=== PATIENT | female | born 1940 | race Caucasian/White ===

== ENCOUNTER 2017-09-15 13:21 | Inpatient (IN) | payer OTHER, MEDICARE ==
--- NOTE | 2017-09-15 13:41 | PDOC ---
History of Present Illness - General Chief Complaint: Toothache Stated Complaint: SWOLLEN MOUTH Time Seen by Provider: 09/15/17 13:38 History Source: Patient Past History - Past Medical History Allergies/Adverse Reactions: Allergies Allergy/AdvReac Type Severity Reaction Status Date / Time Sulfa (Sulfonamide Allergy Severe Verified 09/15/17 13:35 Antibiotics) [Sulfa(Sulfonamide Antibiotics)] ciprofloxacin Allergy Verified 09/15/17 13:35 Penicillins AdvReac Mild Verified 09/15/17 13:35 SEASONAL Allergy Uncoded 09/15/17 13:35 Home Medications: Ambulatory Orders clonazePAM [Klonopin -] 0.5 mg PO BID PRN #30 tablet 01/20/15 Benzonatate [Tessalon Pearls -] 100 mg PO TID #21 capsule 01/15/17 Anemia: Yes Asthma: No Cancer: No Cardiac Disorders: No CVA: No COPD: No CHF: No DVT: No Dementia: No Diabetes: No GI Disorders: Yes (IBS) Disorders: Yes (UTI (ESBL)) HTN: No Hypercholesterolemia: Yes Liver Disease: Yes (hepatitis A 1970) Seizures: No Thyroid Disease: No - Surgical History Abdominal Surgery: No Appendectomy: No Cardiac Surgery: No Cholecystectomy: No Lung Surgery: No Neurologic Surgery: No Orthopedic Surgery: Yes (cast for broken wrist(rt),brace for patellar fracture) - Immunization History Immunization Up to Date: No - Suicide/Smoking/Psychosocial Hx Smoking Status: No Smoking History: Never smoked Have you smoked in the past 12 months: No Number of Cigarettes Smoked Daily: 0 Information on smoking cessation initiated: No Hx Alcohol Use: No Drug/Substance Use Hx: No Substance Use Type: None Hx Substance Use Treatment: No *Physical Exam - Vital Signs Last Vital Signs Temp Pulse Resp BP Pulse Ox 98.7 F 95 H 16 165/95 100 09/15/17 13:31 09/15/17 13:31 09/15/17 13:31 09/15/17 13:31 09/15/17 13:31 Medical Decision Making - Medical Decision Making 09/15/17 13:40 76 yo F, no sig hx,
--- NOTE | 2017-09-15 15:02 | PDOC ---
History of Present Illness - General Chief Complaint: Toothache Stated Complaint: SWOLLEN MOUTH Time Seen by Provider: 09/15/17 13:38 History Source: Patient Exam Limitations: No Limitations - History of Present Illness Initial Comments: The patient is a 76F with a history of IBD who presents with 1 day of right facial swelling/tenderness after breaking a tooth 1 week ago. She reports that she was doing well after breaking her tooth until last night when she first noticed some small right para-nasal swelling that has since spread to her maxillary area and inferiorly towards her mandible. She endorses subjective fevers and chills. She denies HOOPER, vision changes, dysphagia, odynophagia, N/V, or recent sick contacts. She tried taking a homeopathic remedy that she does not remember the name of that did not work. 09/15/17 14:56 Past History - Past Medical History Allergies/Adverse Reactions: Allergies Allergy/AdvReac Type Severity Reaction Status Date / Time Sulfa (Sulfonamide Allergy Severe Verified 09/15/17 23:20 Antibiotics) [Sulfa(Sulfonamide Antibiotics)] ciprofloxacin Allergy Verified 09/15/17 23:20 Penicillins AdvReac Mild Verified 09/15/17 23:20 SEASONAL Allergy Uncoded 09/15/17 23:20 Home Medications: Ambulatory Orders NK [No Known Home Medication] 09/15/17 Anemia: Yes Asthma: No Cancer: No Cardiac Disorders: No CVA: No COPD: No CHF: No DVT: No Dementia: No Diabetes: No GI Disorders: Yes (IBS) Disorders: Yes (UTI (ESBL)) HTN: No Hypercholesterolemia: Yes Liver Disease: Yes (hepatitis A 1970) Seizures: No Thyroid Disease: No - Surgical History Abdominal Surgery: No Appendectomy: No Cardiac Surgery: No Cholecystectomy: No Lung Surgery: No Neurologic Surgery: No Orthopedic Surgery: Yes (cast for broken wrist(rt),brace for patellar fracture) - Immunization History Immunization Up to Date: No - Suicide/Smoking/Psychosocial Hx Smoking Status: No Smoking History: Never smoked Have you smoked in the past 12 months: No Number of Cigarettes Smoked Daily: 0 Information on smoking cessation initiated: No Hx Alcohol Use: No Drug/Substance Use Hx: No Substance Use Type: None Hx Substance Use Treatment: No Review of Systems - Review of Systems Comments:: GENERAL/CONSTITUTIONAL: +subjective fever and chills. No weakness HEAD, EYES, EARS, NOSE AND THROAT: No change in vision. No ear pain or discharge. No sore throat. CARDIOVASCULAR: No chest pain or shortness of breath RESPIRATORY: No cough, wheezing, or hemoptysis. GASTROINTESTINAL: No nausea, vomiting, diarrhea or constipation. GENITOURINARY: No dysuria, frequency, or change in urination. MUSCULOSKELETAL: No joint or muscle swelling or pain. No neck or back pain. SKIN: No rash or reddness other than her facial redness NEUROLOGIC: No headache, vertigo, loss of consciousness, or change in strength/ sensation. ENDOCRINE: No increased thirst. No abnormal weight change HEMATOLOGIC/LYMPHATIC: No anemia, easy bleeding, or history of blood clots. ALLERGIC/IMMUNOLOGIC: No hives or skin allergy. 09/15/17 15:01 *Physical Exam - Vital Signs Last Vital Signs Temp Pulse Resp BP Pulse Ox 98.7 F 95 H 16 165/95 100 09/15/17 13:31 09/15/17 13:31 09/15/17 13:31 09/15/17 13:31 09/15/17 13:31 - Physical Exam Comments: GENERAL: Awake, alert, and fully oriented, in no acute distress HEAD: Swelling over right maxilla from para-nasal area, over maxillary sinus, inferiorly towards mandible with overlying erythema. No fluctuance palpated EYES: PERRLA, EOMI, sclera anicteric, conjunctiva clear ENT: Auricles normal inspection, hearing grossly normal, nares patent, oropharynx clear without exudates. Upper right molar broken, no drainage or swelling seen around the tooth. No mucosal erythema. Moist mucosa NECK: Normal ROM, supple, no lymphadenopathy, JVD, or masses LUNGS: No distress, speaks full sentences, clear to auscultation bilaterally HEART: Regular rate and rhythm, normal S1 and S2, no murmurs, rubs or gallops, peripheral pulses normal and equal bilaterally. ABDOMEN: Soft, nontender, normoactive bowel sounds. No guarding, no rebound. EXTREMITIES : Normal inspection, Normal range of motion, no edema. No clubbing or cyanosis. NEUROLOGICAL: Cranial nerves II through XII grossly intact. Normal speech, normal gait, no focal sensorimotor deficits SKIN: Warm, Dry, normal turgor, no rashes or lesions noted other than erythema noted over facial swelling 09/15/17 15:02 ED Treatment Course - LABORATORY CBC & Chemistry Diagram: 09/15/17 15:09 09/15/17 15:09 - RADIOLOGY Radiology Studies Ordered: Category Date Time Status FACIAL BONES CT WITH CONTRAST [CT] Stat CT Scan 09/15/17 14:55 Ordered Medical Decision Making - Medical Decision Making The patient is a 76F with a history of IBD who presents for 1day of facial swelling and erythema concerning for facial abscess 1wk s/p breaking a tooth. Ddx: facial abscess, cellulitis, sinusitis ED Course BMP, CBC, CT face w/ contrast to evaluate for infection 09/15/17 15:05 BMP with normal Cr, CT w/ contrast still pending. Continues to have pressure and swelling. Afebrile. At this time plan for admission for IV abx for facial infection 09/15/17 16:[address] w/ contrast. Agreed to CT non-contrast of the face if place lead over neck. Discussed plan with patient and radiology who are both in agreement. Plan for admission for IV abx after scan. 09/15/17 19:05 I have transferred care of the patient to Dr. Mitchell and discussed the clinical presentation, work-up and ED course thus far. 09/15/17 20:00 *DC/Admit/Observation/Transfer Diagnosis at time of Disposition: Facial infection - Referrals - Patient Instructions - Post Discharge Activity
--- NOTE | 2017-09-15 16:22 | PDOC ---
Attending Attestation - Resident Resident Name: Martinez Camara - ED Attending Attestation I have performed the following: I have examined & evaluated the patient, The case was reviewed & discussed with the resident, I agree w/resident's findings & plan, Exceptions are as noted - HPI HPI: 09/15/17 16:21 "The patient is a 76 year old female with significant past medical history of anemia, hepatitis A (1970), IBS, who presents to the emergency department to be evaluated for 1 day of facial swelling and worsening redness to her right cheek after breaking her tooth last week. Denies F/C. Denies any bleeding or drainage from tooth or gums. Allergies: sulfas, ciprofloxacin, Penicillins, seasonal Social history: No alcohol, tobacco, recreational drug use. Surgical history: tonsillectomy PCP: unknown " - Physicial Exam PE: 09/15/17 16:33 "GENERAL: Awake, alert, and fully oriented, in no acute distress. HEAD: No signs of trauma EYES: PERRLA, EOMI, sclera anicteric, conjunctiva clear ENT: + swelling and erythema to R cheek, 5th tooth chipped with dentin exposed, no pulp visible, no abscess palpable NECK: Nontender, no stepoffs, Normal ROM, supple, no lymphadenopathy, JVD, or masses LUNGS: Breath sounds equal, clear to auscultation bilaterally. No wheezes, and no crackles HEART: Regular rate and rhythm, normal S1 and S2, no murmurs, rubs or gallops ABDOMEN: Soft, nontender, normoactive bowel sounds. No guarding, no rebound. No masses EXTREMITIES: Normal range of motion, no edema. No clubbing or cyanosis. No cords, erythema, or tenderness NEUROLOGICAL: Cranial nerves II through XII intact. 5/5 strength and sensation in all extremities, Normal speech, normal gait, normal cerebellar function SKIN: Warm, Dry, normal turgor, no rashes or lesions noted. " - Medical Decision Making 09/15/17 16:54 76 F with R cheek swelling and pain after chipping her 5th tooth 1 week ago. Likely periodontal infection. No abscess visualized. - Labs - CT face w/ IV contrast to r/o abscess - Abx <Ou,Remigio - Last Filed: 09/15/17 16:23> Attestations - Attestations 09/15/17 19:04 Documentation prepared by Sita Roberson, acting as medical billing assistant for Remigio Lopez MD. <Sita Roberson - Last Filed: 09/15/17 19:04>
[2017-09-15 16:38] LABS: ANION GAP 8 (8-16); BLOOD UREA NITROGEN 12 mg/dL (7-18); CALCIUM 9.6 mg/dL (8.5-10.1); CHLORIDE 102 mmol/L (98-107); CO2 32 mmol/L (21-32); CREATININE 0.7 mg/dL (0.55-1.02); GLUCOSE,RANDOM 121 mg/dL (74-106); POTASSIUM 3.8 mmol/L (3.5-5.1); SODIUM 142 mmol/L (136-145)
[2017-09-15 18:12] LABS: HEMATOCRIT 41.8 % (32.4-45.2); MCH 31.5 pg (25.7-33.7); MCHC 33.5 g/dl (32.0-36.0); MEAN CELL VOLUME 94.1 fl (80-96); MEAN PLT VOLUME 12.4 fl (7.5-11.1); PLATELET COUNT 192 K/MM3 (134-434); RBC 4.44 M/mm3 (3.60-5.2); RDW 13.6 % (11.6-15.6); WHITE BLOOD COUNT 8.9 K/mm3 (4.0-10.0)
[2017-09-15] MEDS ORDERED: CLINDAMYCIN IVPB 300 MG in DEXTROSE 5%-WATER - 48 ML IVPB ONE (19:00)
[2017-09-15] MEDS ORDERED: CLINDAMYCIN 600MG PREMIX IVPB 600 MG/50 ML BAG IVPB ONE (21:06)
--- NOTE | 2017-09-15 22:26 | PN ---
Teaching Attending Note ATTENDING PHYSICIAN STATEMENT I saw and evaluated the patient. I reviewed the resident's note and discussed the case with the resident. I agree with the resident's findings and plan as documented. SUBJECTIVE: OBJECTIVE: CBCD WBC 8.9 K/mm3 (4.0-10.0) 09/15/17 15:09 RBC 4.44 M/mm3 (3.60-5.2) 09/15/17 15:09 Hgb 14.0 GM/dL (10.7-15.3) 09/15/17 15:09 Hct 41.8 % (32.4-45.2) 09/15/17 15:09 MCV 94.1 fl (80-96) 09/15/17 15:09 MCHC 33.5 g/dl (32.0-36.0) 09/15/17 15:09 RDW 13.6 % (11.6-15.6) 09/15/17 15:09 Plt Count 192 K/MM3 (134-434) 09/15/17 15:09 MPV 12.4 fl (7.5-11.1) H D 09/15/17 15:09 CMP Sodium 142 mmol/L (136-145) 09/15/17 15:09 Potassium 3.8 mmol/L (3.5-5.1) 09/15/17 15:09 Chloride 102 mmol/L (98-107) 09/15/17 15:09 Carbon Dioxide 32 mmol/L (21-32) 09/15/17 15:09 Anion Gap 8 (8-16) 09/15/17 15:09 BUN 12 mg/dL (7-18) 09/15/17 15:09 Creatinine 0.7 mg/dL (0.55-1.02) 09/15/17 15:09 Creat Clearance w eGFR > 60 (>60) 09/15/17 15:09 Calcium 9.6 mg/dL (8.5-10.1) 09/15/17 15:09 ASSESSMENT AND PLAN:
--- NOTE | 2017-09-15 22:32 | PDOC ---
*Physical Exam - Vital Signs Last Vital Signs Temp Pulse Resp BP Pulse Ox 98.7 F 95 H 16 165/95 100 09/15/17 13:31 09/15/17 13:31 09/15/17 13:31 09/15/17 13:31 09/15/17 13:31 - Physical Exam Comments: 09/16/17 04:10 GENERAL: Awake, alert, and fully oriented, in no acute distress HEAD: No signs of trauma, normocephalic, atraumatic EYES: PERRLA, EOMI, sclera anicteric, conjunctiva clear ENT: + swelling, warmth, and erythema from mandibular angle and border to R sided cheek. R sided 5th tooth avulsed with absent visualization of pulp. Auricles normal inspection, hearing grossly normal, nares patent, oropharynx clear without exudates. Moist mucosa NECK: Normal ROM, supple, no lymphadenopathy, JVD, or masses LUNGS: No distress, speaks full sentences, clear to auscultation bilaterally HEART: Regular rate and rhythm, normal S1 and S2, no murmurs, rubs or gallops, peripheral pulses normal and equal bilaterally. ABDOMEN: Soft, nontender, normoactive bowel sounds. No guarding, no rebound. No masses EXTREMITIES : Normal inspection, Normal range of motion, no edema. No clubbing or cyanosis. NEUROLOGICAL: Cranial nerves II through XII grossly intact. Normal speech, normal gait, no focal sensorimotor deficits SKIN: Warm, Dry, normal turgor, no rashes or lesions noted ED Treatment Course - LABORATORY CBC & Chemistry Diagram: 09/15/17 15:09 09/15/17 15:09 - ADDITIONAL ORDERS Additional order review: Laboratory Results 09/15/17 15:09 Sodium 142 Potassium 3.8 Chloride 102 Carbon Dioxide 32 Anion Gap 8 BUN 12 Creatinine 0.7 Creat Clearance w eGFR > 60 Random Glucose 121 H Calcium 9.6 09/15/17 15:09 RBC 4.44 MCV 94.1 MCHC 33.5 RDW 13.6 MPV 12.4 H D - Medications Given in the ED: ED Medications Discontinued Medications Generic Name Dose Route Start Last Admin Trade Name Freq PRN Reason Stop Dose Admin Clindamycin Phosphate 300 mg/ 50 mls @ 100 mls/hr 09/15/17 19:00 09/15/17 21: 06 Dextrose IVPB 09/15/17 19:29 100 mls/hr ONCE ONE Administration Protocol Medical Decision Making - Medical Decision Making 09/15/17 22:23 76 yo F with h/o IBD who p/w 1 day of right facial swelling/tenderness following tooth avulsion 1 week ago. Received signout from Dr. Pickett. CBC, BMP Unremarkable. Pending CT FACIAL/BONES r/o fracture/abscess. ED Course: 09/16/17 04:11 CT Facial bones: Inflammatory change/phlegmon within subcuatneous tissue of right maxiallary area extending to right sided mandible. No fracture or abscess. Patient admitted to med/surg Dr. Renteria. *DC/Admit/Observation/Transfer Diagnosis at time of Disposition: Facial infection - Discharge Dispostion Decision to Admit order: Yes Decision to Admit order Date/Time: Decision to Admit Order Category Date Time Status Decision to Admit to Hospital Routine Admission 09/15/17 22:22 Ordered - Referrals - Patient Instructions - Post Discharge Activity
--- NOTE | 2017-09-16 07:29 | PN ---
Progress Note (short form) - Note Progress Note: 76 y/o F presented with right facial swelling and erythema. Patient reports having her tooth in maxillary area break and then noting yesterday the erythema and swelling of her right side of face. PMH of sinusitis. Exam: right facial swelling and eryhthema, right infraorbital swelling and b/l nasal turbinates enlarged, no mucus secretions notes. Poor oral hygiene with multiple cavities. Admitting for Dr Laurent's service Facial cellulitis with h/o chronic maxillary sinusitis- Clindamycin, follow blood cultures and CBC in AM. Consider ENT consult. Endorse to Day team to admit.
[2017-09-16] MEDS ORDERED: KETOROLAC TROMETHAMINE 15 MG/ML VIAL IVPUSH PRN (10:05)
[2017-09-16] MEDS: SODIUM CHLORIDE 1,000 ML IV SCH (10:15)
--- NOTE | 2017-09-16 10:15 | HP ---
CHIEF COMPLAINT: Right facial swelling PCP: Dr. Polanco/Dr. 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 Two days ago patient felt a pinching-type pain in the right upper premolar area. She also noticed very mild swelling of the right cheek. She used ambesol and a cold pack, but the next day the swelling was worse. She experienced subjective fever and felt cold. She called her dentist who was away on vacation. She went to see Dr. Polanco who referred her the emergency department. Patient arrived yesterday evening. On this admission examination, patient has significant swelling and erythema of the right cheek extending up to the right periorbital area and partially across the bridge of the nose. She has no difficulty swallowing. She complains of mild pain and nausea. 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 Allergies Sulfa (Sulfonamide Antibiotics) [Sulfa(Sulfonamide Antibiotics)] Allergy (Severe , Verified 09/15/17 23:20) ciprofloxacin Allergy (Verified 09/15/17 23:20) Penicillins Adverse Reaction (Mild, Verified 09/15/17 23:20) gives me "yeast infections" SEASONAL Allergy (Uncoded 09/15/17 23:20) HOME MEDICATIONS: Takes vitamins and homeopathic remedies; no prescription medications REVIEW OF SYSTEMS CONSTITUTIONAL: +subjective fever, chills Absent: diaphoresis, generalized weakness, malaise, loss of appetite, weight change HEENT: +right upper pre-molar pinching type pain Absent: rhinorrhea, nasal congestion, throat pain, throat swelling, difficulty swallowing, mouth swelling, ear pain, eye pain, visual changes CARDIOVASCULAR: Absent: chest pain, syncope, palpitations, irregular heart rate, lightheadedness , peripheral edema RESPIRATORY: Absent: cough, shortness of breath, dyspnea with exertion, orthopnea, wheezing, stridor, hemoptysis GASTROINTESTINAL: Absent: abdominal pain, abdominal distension, nausea, vomiting, diarrhea, constipation, melena, hematochezia GENITOURINARY: Absent: dysuria, frequency, urgency, hesitancy, hematuria, flank pain, genital pain MUSCULOSKELETAL: Absent: myalgia, arthralgia, joint swelling, back pain, neck pain SKIN: Absent: rash, itching, pallor HEMATOLOGIC/IMMUNOLOGIC: Absent: easy bleeding, easy bruising, lymphadenopathy, frequent infections ENDOCRINE: Absent: unexplained weight gain, unexplained weight loss, heat intolerance, cold intolerance NEUROLOGIC: Absent: headache, focal weakness or paresthesias, dizziness, unsteady gait, seizure, mental status changes, bladder or bowel incontinence PSYCHIATRIC: Absent: anxiety, depression, suicidal or homicidal ideation, hallucinations. PHYSICAL EXAMINATION Vital Signs - 24 hr 09/15/17 09/15/17 09/16/17 13:31 14:15 06:11 Temperature 98.7 F Pulse Rate 95 H Pulse Rate [ 88 Right Apical] Respiratory 16 16 Rate Blood Pressure 165/95 Blood Pressure 149/65 [Right Arm] O2 Sat by Pulse 100 98 99 Oximetry (%) 09/16/17 06:56 Temperature 99.2 F Pulse Rate 94 H Pulse Rate [ Right Apical] Respiratory 20 Rate Blood Pressure 167/85 Blood Pressure [Right Arm] O2 Sat by Pulse Oximetry (%) GENERAL: Awake, alert, and fully oriented, in no acute distress. HEAD: Right-sided facial swelling and erythema extending from mandible to right periorbital area and across bridge of nose EYES: Pupils equal, round and reactive to light, extraocular movements intact, sclera anicteric, conjunctiva clear. No lid lag. EARS, NOSE, THROAT: Poor dentition; oropharynx clear; no obvious swelling or exudate NECK: Normal range of motion, supple without lymphadenopathy, JVD, or masses. LUNGS: Breath sounds equal, clear to auscultation bilaterally. No wheezes, and no crackles. No accessory muscle use. HEART: Regular rate and rhythm, normal S1 and S2 ABDOMEN: Soft, nontender, not distended, normoactive bowel sounds, no guarding, no rebound MUSCULOSKELETAL: Normal range of motion at all joints. No bony deformities or tenderness. No CVA tenderness. UPPER EXTREMITIES: 2+ pulses, warm, well-perfused. No cyanosis. No clubbing. No peripheral edema. LOWER EXTREMITIES: 2+ pulses, warm, well-perfused. No calf tenderness. No peripheral edema. NEUROLOGICAL: Cranial nerves II-XII intact. Normal speech. Normal gait. 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 Presents with facial cellulitis. Right-sided facial cellulitis --sinuses v. dental infection? --ENT consult pending --ID following Bilateral maxillary sinusitis --acute v. chronic --antibiotics as above Recurrent UTIs --stable DVT prophylaxis: subq heparin, oob, ambulation Physical therapy Dispo: continues to require in patient care. Full code. Visit type - Emergency Visit Emergency Visit: Yes ED Registration Date: 09/15/17 Care time: The patient presented to the Emergency Department on the above date and was hospitalized for further evaluation of their emergent condition. - New Patient This patient is new to me today: Yes Date on this admission: 09/16/17 - Critical Care Critical Care patient: No Hospitalist Screening - Colonoscopy Questionnaire Colonoscopy Questionnaire: Colonoscopy Questionnaire - Patient: 50 - 75 years old and never had a screening colonoscopy: No History of colon or rectal polyps, or CA: No History of IBD, Crohn's disease or UC: No History of abdominal radiation therapy as a child: No - Relative: 1 with colon or rectal CA, or polyps at age 60 or younger: Unknown Colon or rectal CA diagnosed at age 45 or younger: Unknown Multiple relatives with colon or rectal CA: Unknown - Outcome: Screening Result: Negative Screen
[2017-09-16] MEDS: HEPARIN NA (PORCINE) 5,000 UNITS/ML 1ML VIAL SQ SCH ×3 (10:23→22:10)
[2017-09-16] MEDS ORDERED: ONDANSETRON 4 MG/2 ML VIAL IVPUSH PRN (13:57)
[2017-09-16] MEDS: CLINDAMYCIN 600MG PREMIX IVPB 600 MG/50 ML BAG IVPB SCH ×2 (15:30→22:00)
--- NOTE | 2017-09-16 17:13 | PN ---
Progress Note (short form) - Note Progress Note: ID Consult dictated R facial cellulitis, likely secondary to dental infection Multiple antibiotic allergies Continue empiric clindamycin
[2017-09-16 17:29] VITALS: BMI 25.7
--- NOTE | 2017-09-16 18:51 | CONS ---
DATE OF CONSULTATION: DATE OF DICTATION: 09/16/2017 INFECTIOUS DISEASE CONSULTATION HISTORY OF PRESENT ILLNESS: The patient is a 76-year-old female evaluated for facial cellulitis. She reports that approximately 1 week prior to admission she broke a tooth in the right upper jaw. She developed right sided facial pain and swelling approximately 1 day prior to admission associated with subjective fever and chills. She presented to the emergency room, where she was found to have facial cellulitis. CAT scan was performed that showed findings consistent with facial cellulitis. No dental abscess was seen. She was also noted to have maxillary sinusitis. Cultures were obtained, and she was empirically treated with clindamycin. At the present time, she reports some improvement in her facial pain and swelling. She has been afebrile with a normal white blood cell count. PAST MEDICAL HISTORY: Positive for chronic anemia, irritable bowel syndrome, hepatitis A. ALLERGIES: SULFA, CIPRO, PENICILLIN. SULFA allergy occurred when she was an . CIPRAFLOXICIN causes her lips to turn purple. PENICILLIN allergy described as rash. MEDICATION: Zofran, clindamycin, heparin, Toradol. SOCIAL HISTORY: Resides at home. Nonsmoker. Nondrinker. SYSTEMS REVIEW: Neurologic: No loss of consciousness, seizure, activity, focal weakness. Cardiac: Negative for chest pain or palpitations. Respiratory: Negative for cough or sputum production. Gastrointestinal: Negative vomiting or diarrhea. LABORATORY DATA: White count 8.9, hematocrit 41.8, platelet count 192, BUN 12, creatinine 0.7. Blood cultures pending. PHYSICAL EXAMINATION: General: On exam, the patient is awake and alert, in no acute distress. Vital signs: Temperature 98.4, blood pressure 163/86, pulse 86 regular, respirations 20 per minute. HEENT: Sclerae anicteric. Examination of the face, there is facial swelling and patchy erythema involving the right periorbital area, the left malar area, extending to the mandible. There is flattening of the nasolabial fold. There is tenderness present over the left maxilla. No crepitus or fluctuance. Examination of the oral cavity, there are multiple carious teeth. Neck: Supple. Cardiovascular: Heart sounds S1, S2. Lungs: Clear. Abdomen: Soft, nontender. Extremities: Negative for edema. IMPRESSION: 1. Right facial cellulitis. Likely secondary to dental infection. 2. Multiple antibiotic allergies. Await cultures. Continue clindamycin 600 mg IV piggyback every 8 hours. Dental evaluation when stable. Will follow. Thank you for the kind referral. JEFERSON KUO M.D. [id number]
[2017-09-17 00:07] LABS: URINE APPEARANCE CLEAR; URINE BILIRUBIN NEGATIVE (<2.0 mg/dL); URINE COLOR STRAW; URINE GLUCOSE (UA) NEGATIVE (NEGATIVE); URINE KETONE NEGATIVE (NEGATIVE); URINE LEUK ESTERASE NEGATIVE (NEGATIVE); URINE NITRITE NEGATIVE (NEGATIVE); URINE PROTEIN NEGATIVE (NEGATIVE); URINE UROBILINOGEN NEGATIVE mg/dL (0.2-1.0)
[2017-09-17 00:45] LABS: EPI CELLS RARE /HPF (FEW)
[2017-09-17] MEDS: SODIUM CHLORIDE 1,000 ML IV SCH ×2 (00:58→14:09)
[2017-09-17] MEDS: CLINDAMYCIN 600MG PREMIX IVPB 600 MG/50 ML BAG IVPB SCH ×4 (02:33→22:00)
[2017-09-17] MEDS: HEPARIN NA (PORCINE) 5,000 UNITS/ML 1ML VIAL SQ SCH ×3 (06:01→22:21)
[2017-09-17 06:46] LABS: BASO % 0.6 % (0-2.0); EOS % 1.3 % (0-4.5); HEMATOCRIT 35.4 % (32.4-45.2); HEMOGLOBIN 11.9 GM/dL (10.7-15.3); LYMPH % 20.6 % (8-40); MCH 31.5 pg (25.7-33.7); MCHC 33.7 g/dl (32.0-36.0); MEAN CELL VOLUME 93.4 fl (80-96); MEAN PLT VOLUME 11.4 fl (7.5-11.1); MONO % 9.6 % (3.8-10.2); NEUT % 67.9 % (42.8-82.8); PLATELET COUNT 147 K/MM3 (134-434); RBC 3.79 M/mm3 (3.60-5.2); RDW 13.6 % (11.6-15.6); WHITE BLOOD COUNT 6.4 K/mm3 (4.0-10.0)
[2017-09-17 07:28] LABS: ALBUMIN 3.2 g/dl (3.4-5.0); ALK PHOS 92 U/L (45-117); ANION GAP 7 (8-16); BILIRUBIN,TOTAL 0.9 mg/dL (0.2-1.0); BLOOD UREA NITROGEN 10 mg/dL (7-18); CALCIUM 8.5 mg/dL (8.5-10.1); CHLORIDE 106 mmol/L (98-107); CO2 30 mmol/L (21-32); CREATININE 0.6 mg/dL (0.55-1.02); GLUCOSE,RANDOM 107 mg/dL (74-106); MAGNESIUM 2.1 mg/dL (1.8-2.4); POTASSIUM 3.8 mmol/L (3.5-5.1); SGOT/AST 18 U/L (15-37); SGPT/ALT 24 U/L (12-78); SODIUM 143 mmol/L (136-145); TOT PROT 5.6 g/dl (6.4-8.2)
--- NOTE | 2017-09-17 11:13 | PN ---
Progress Note, Physician Chief Complaint: Facial cellulitis History of Present Illness: NAD Facial erythema and swelling improved refuses to be on oral antibiotics Okay with getting IV abx as outpatient on daily basis - Current Medication List Current Medications: Active Medications Heparin Sodium (Porcine) (Heparin -) 5,000 unit SQ TID DU Last Admin: 09/17/17 06:01 Dose: Not Given Sodium Chloride (Normal Saline -) 1,000 mls @ 75 mls/hr IV ASDIR DU Last Admin: 09/17/17 00:58 Dose: 75 mls/hr Clindamycin Phosphate (Cleocin 600 Mg Premix Ivpb -) 600 mg in 50 mls @ 100 mls /hr IVPB Q6H-IV DU; Protocol Last Admin: 09/17/17 09:43 Dose: 100 mls/hr Ketorolac Tromethamine (Toradol Injection -) 15 mg IVPUSH Q6H PRN PRN Reason: PAIN LEVEL 4 - 6 Stop: 09/21/17 10:04 Ondansetron HCl (Zofran Injection) 4 mg IVPUSH Q6H PRN PRN Reason: NAUSEA Last Admin: 09/16/17 15:29 Dose: 4 mg - Objective Vital Signs: Vital Signs Temperature 98.8 F 09/17/17 10:00 Pulse Rate 84 09/17/17 10:00 Respiratory Rate 20 09/17/17 10:00 Blood Pressure 136/70 09/17/17 10:00 O2 Sat by Pulse Oximetry (%) 97 09/17/17 09:00 Constitutional: Yes: Well Nourished, No Distress, Calm Cardiovascular: Yes: Regular Rate and Rhythm Respiratory: Yes: Regular Gastrointestinal: Yes: Normal Bowel Sounds, Soft Peripheral Pulses WNL: Yes Neurological: Yes: Alert, Oriented Psychiatric: Yes: Alert, Oriented Labs: CBC, BMP 09/17/17 06:30 09/17/17 06:30 Problem List - Problems (1) Facial cellulitis Assessment/Plan: -Seen by ID -IV clindamycin as per ID Code(s): L03.211 - CELLULITIS OF FACE Assessment/Plan See problem list
--- NOTE | 2017-09-17 13:34 | CON.ENT ---
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 She reports that she was doing well after breaking her tooth until last night when she first noticed some small right para-nasal swelling that has since spread to her maxillary area and inferiorly towards her mandible. She endorses subjective fevers and chills. She denies HOOPER, vision changes, dysphagia, odynophagia, N/V, or recent sick contacts. She tried taking a homeopathic remedy that she does not remember the name of that did not work. 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)) ...: No Infectious Disease: Yes: Other (Herpes: reports lesions on her palm, and cold sores) Psych: Yes: Anxiety - Alcohol/Substance Use Hx Alcohol Use: No - Smoking History Smoking history: Never smoked Have you smoked in the past 12 months: No Aproximately how many cigarettes per day: 0 - Social History ADL: Independent 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 [employer] Home Medications - Allergies Allergies/Adverse Reactions: Allergies Allergy/AdvReac Type Severity Reaction Status Date / Time Sulfa (Sulfonamide Allergy Severe Verified 09/15/17 23:20 Antibiotics) [Sulfa(Sulfonamide Antibiotics)] ciprofloxacin Allergy Verified 09/15/17 23:20 Penicillins AdvReac Mild Verified 09/15/17 23:20 SEASONAL Allergy Uncoded 09/15/17 23:20 - Home Medications Home Medications: Ambulatory Orders NK [No Known Home Medication] 09/15/17 Physical Exam-ENT Vital Signs: Vital Signs Temperature 98.8 F 09/17/17 10:00 Pulse Rate 84 09/17/17 10:00 Respiratory Rate 20 09/17/17 10:00 Blood Pressure 136/70 09/17/17 10:00 O2 Sat by Pulse Oximetry (%) 97 09/17/17 09:00 Constitutional: Yes: Well Nourished, No Distress Head: Yes: WNL, Atraumatic, Normocephalic Face: Yes: Other (right facial edema adjacent to right mandible non tender edema.) Eyes: Yes: WNL Nose: Yes: WNL Nasal Passage: Yes: WNL Oral/Pharynx: Yes: Other (tender gingiva of the right maxillary teeth, adjacent to broken tooth) Outer Ear: Yes: WNL Problem List - Problems (1) Facial cellulitis Assessment/Plan: Facial swelling secondary to dental infection, d/c to outside oral surgeon and change to outpatient abx treatment. Code(s): L03.211 - CELLULITIS OF FACE
[2017-09-17] MEDS: BISACODYL 10 MG SUPP.RECT PR PRN (14:13)
--- NOTE | 2017-09-17 14:29 | PN ---
Progress Note, Physician History of Present Illness: Reports less facial pain and swelling No c/o dental pain No fever/ chills Tolerating antibiotics - Current Medication List Current Medications: Active Medications Bisacodyl (Dulcolax Suppository -) 10 mg [place] DAILY PRN PRN Reason: CONSTIPATION Last Admin: 09/17/17 14:13 Dose: 10 mg Heparin Sodium (Porcine) (Heparin -) 5,000 unit SQ TID DU Last Admin: 09/17/17 14:11 Dose: Not Given Sodium Chloride (Normal Saline -) 1,000 mls @ 75 mls/hr IV ASDIR DU Last Admin: 09/17/17 14:09 Dose: 75 mls/hr Clindamycin Phosphate (Cleocin 600 Mg Premix Ivpb -) 600 mg in 50 mls @ 100 mls /hr IVPB Q6H-IV DU; Protocol Last Admin: 09/17/17 14:11 Dose: 100 mls/hr Ketorolac Tromethamine (Toradol Injection -) 15 mg IVPUSH Q6H PRN PRN Reason: PAIN LEVEL 4 - 6 Stop: 09/21/17 10:04 Ondansetron HCl (Zofran Injection) 4 mg IVPUSH Q6H PRN PRN Reason: NAUSEA Last Admin: 09/16/17 15:29 Dose: 4 mg - Objective Vital Signs: Vital Signs Temperature 98.8 F 09/17/17 10:00 Pulse Rate 84 09/17/17 10:00 Respiratory Rate 20 09/17/17 10:00 Blood Pressure 136/70 09/17/17 10:00 O2 Sat by Pulse Oximetry (%) 97 09/17/17 09:00 Constitutional: Yes: No Distress Eyes: Yes: Conjunctiva Clear HENT: Yes: Other (decreased swelling and erythema, R periorbital / malar area) Cardiovascular: Yes: Regular Rate and Rhythm, S1, S2 Respiratory: Yes: CTA Bilaterally Gastrointestinal: Yes: Normal Bowel Sounds, Soft. No: Tenderness Labs: CBC, BMP 09/17/17 06:30 09/17/17 06:30 Assessment/Plan R facial cellulitis Probable dental abscess Multiple antibiotic allergies Continue IV clindamycin additional 24-48hr
[2017-09-18] MEDS: CLINDAMYCIN 600MG PREMIX IVPB 600 MG/50 ML BAG IVPB SCH ×4 (02:47→21:35)
[2017-09-18] MEDS: HEPARIN NA (PORCINE) 5,000 UNITS/ML 1ML VIAL SQ SCH ×3 (07:16→22:55)
[2017-09-18] MEDS: SODIUM CHLORIDE 1,000 ML IV SCH (09:11)
--- NOTE | 2017-09-18 09:39 | PN ---
Progress Note, Physician Chief Complaint: Facial cellulitis History of Present Illness: NAD Facial erythema and swelling improved refuses to be on oral antibiotics Seen by ENT Okay with getting IV abx as outpatient on daily basis - Current Medication List Current Medications: Active Medications Bisacodyl (Dulcolax Suppository -) 10 mg [place] DAILY PRN PRN Reason: CONSTIPATION Last Admin: 09/17/17 14:13 Dose: 10 mg Heparin Sodium (Porcine) (Heparin -) 5,000 unit SQ TID DU Last Admin: 09/18/17 07:16 Dose: Not Given Sodium Chloride (Normal Saline -) 1,000 mls @ 75 mls/hr IV ASDIR DU Last Admin: 09/18/17 09:11 Dose: 75 mls/hr Clindamycin Phosphate (Cleocin 600 Mg Premix Ivpb -) 600 mg in 50 mls @ 100 mls /hr IVPB Q6H-IV DU; Protocol Last Admin: 09/18/17 09:10 Dose: 100 mls/hr Ketorolac Tromethamine (Toradol Injection -) 15 mg IVPUSH Q6H PRN PRN Reason: PAIN LEVEL 4 - 6 Stop: 09/21/17 10:04 Ondansetron HCl (Zofran Injection) 4 mg IVPUSH Q6H PRN PRN Reason: NAUSEA Last Admin: 09/16/17 15:29 Dose: 4 mg - Objective Vital Signs: Vital Signs Temperature 98.9 F 09/18/17 06:00 Pulse Rate 83 09/18/17 06:00 Respiratory Rate 18 09/18/17 06:00 Blood Pressure 128/65 09/18/17 06:00 O2 Sat by Pulse Oximetry (%) 97 09/17/17 21:00 Constitutional: Yes: Well Nourished, No Distress, Calm Cardiovascular: Yes: Regular Rate and Rhythm Respiratory: Yes: Regular Gastrointestinal: Yes: Normal Bowel Sounds, Soft Musculoskeletal: Yes: WNL Extremities: Yes: WNL Edema: No Peripheral Pulses WNL: Yes Integumentary: Yes: Erythema (right facial-improved) Neurological: Yes: Alert, Oriented Psychiatric: Yes: Alert, Oriented Labs: CBC, BMP 09/17/17 06:30 09/17/17 06:30 Problem List - Problems (1) Facial cellulitis Assessment/Plan: -Seen by ID -IV clindamycin as per ID Code(s): L03.211 - CELLULITIS OF FACE Assessment/Plan See problem list
[2017-09-18] MEDS: BISACODYL 10 MG SUPP.RECT PR PRN (14:00)
[2017-09-19] MEDS: SODIUM CHLORIDE 1,000 ML IV SCH ×2 (02:45→15:30)
[2017-09-19] MEDS: CLINDAMYCIN 600MG PREMIX IVPB 600 MG/50 ML BAG IVPB SCH ×4 (02:45→21:36)
[2017-09-19] MEDS: HEPARIN NA (PORCINE) 5,000 UNITS/ML 1ML VIAL SQ SCH ×3 (05:42→21:36)
--- NOTE | 2017-09-19 08:53 | PN ---
Progress Note, Physician Chief Complaint: Facial cellulitis History of Present Illness: NAD Facial erythema and swelling improved refuses to be on oral antibiotics Seen by ENT Okay with getting IV abx as outpatient on daily basis - Current Medication List Current Medications: Active Medications Bisacodyl (Dulcolax Suppository -) 10 mg [place] DAILY PRN PRN Reason: CONSTIPATION Last Admin: 09/18/17 14:00 Dose: 10 mg Heparin Sodium (Porcine) (Heparin -) 5,000 unit SQ TID DU Last Admin: 09/19/17 05:42 Dose: Not Given Sodium Chloride (Normal Saline -) 1,000 mls @ 75 mls/hr IV ASDIR DU Last Admin: 09/19/17 02:45 Dose: 75 mls/hr Clindamycin Phosphate (Cleocin 600 Mg Premix Ivpb -) 600 mg in 50 mls @ 100 mls /hr IVPB Q6H-IV DU; Protocol Last Admin: 09/19/17 02:45 Dose: 100 mls/hr Ketorolac Tromethamine (Toradol Injection -) 15 mg IVPUSH Q6H PRN PRN Reason: PAIN LEVEL 4 - 6 Stop: 09/21/17 10:04 Ondansetron HCl (Zofran Injection) 4 mg IVPUSH Q6H PRN PRN Reason: NAUSEA Last Admin: 09/16/17 15:29 Dose: 4 mg - Objective Vital Signs: Vital Signs Temperature 98.7 F 09/19/17 05:53 Pulse Rate 77 09/19/17 05:53 Respiratory Rate 20 09/19/17 05:53 Blood Pressure 135/74 09/19/17 05:53 O2 Sat by Pulse Oximetry (%) 96 09/18/17 21:00 Constitutional: Yes: Well Nourished, No Distress, Calm Cardiovascular: Yes: Regular Rate and Rhythm Respiratory: Yes: Regular Gastrointestinal: Yes: Normal Bowel Sounds, Soft Musculoskeletal: Yes: WNL Extremities: Yes: WNL Edema: No Peripheral Pulses WNL: Yes Neurological: Yes: Alert, Oriented Psychiatric: Yes: Alert, Oriented Labs: CBC, BMP 09/17/17 06:30 09/17/17 06:30 Problem List - Problems (1) Facial cellulitis Assessment/Plan: -Seen by ID -IV clindamycin as per ID Code(s): L03.211 - CELLULITIS OF FACE Assessment/Plan See problem list
[2017-09-19] MEDS: BISACODYL 10 MG SUPP.RECT PR PRN (09:49)
[2017-09-19] MEDS ORDERED: clonazePAM 0.5 MG TABLET PO PRN (11:18)
[2017-09-20] MEDS: CLINDAMYCIN 600MG PREMIX IVPB 600 MG/50 ML BAG IVPB SCH ×4 (03:35→21:58)
[2017-09-20] MEDS: HEPARIN NA (PORCINE) 5,000 UNITS/ML 1ML VIAL SQ SCH ×3 (06:20→21:58)
--- NOTE | 2017-09-20 08:16 | PN ---
Progress Note, Physician - Current Medication List Current Medications: Active Medications Bisacodyl (Dulcolax Suppository -) 10 mg [place] DAILY PRN PRN Reason: CONSTIPATION Last Admin: 09/19/17 09:49 Dose: 10 mg Clonazepam (Klonopin -) 0.5 mg PO BID PRN PRN Reason: ANXIETY Heparin Sodium (Porcine) (Heparin -) 5,000 unit SQ TID DU Last Admin: 09/20/17 06:20 Dose: Not Given Sodium Chloride (Normal Saline -) 1,000 mls @ 75 mls/hr IV ASDIR DU Last Admin: 09/19/17 15:30 Dose: 75 mls/hr Clindamycin Phosphate (Cleocin 600 Mg Premix Ivpb -) 600 mg in 50 mls @ 100 mls /hr IVPB Q6H-IV DU; Protocol Last Admin: 09/20/17 08:15 Dose: 100 mls/hr Ketorolac Tromethamine (Toradol Injection -) 15 mg IVPUSH Q6H PRN PRN Reason: PAIN LEVEL 4 - 6 Stop: 09/21/17 10:04 Ondansetron HCl (Zofran Injection) 4 mg IVPUSH Q6H PRN PRN Reason: NAUSEA Last Admin: 09/16/17 15:29 Dose: 4 mg - Objective Vital Signs: Vital Signs Temperature 97.8 F 09/20/17 05:42 Pulse Rate 78 09/20/17 05:42 Respiratory Rate 20 09/20/17 05:42 Blood Pressure 141/78 09/20/17 05:42 O2 Sat by Pulse Oximetry (%) 98 09/19/17 19:58 HENT: Yes: Other (sweeling over rt side) Cardiovascular: Yes: Regular Rate and Rhythm Respiratory: Yes: Regular, CTA Bilaterally Gastrointestinal: Yes: Normal Bowel Sounds, Soft Labs: CBC, BMP 09/17/17 06:30 09/17/17 06:30 Problem List - Problems (1) Facial cellulitis Assessment/Plan: -IV ABX -ID FOLLOW UP Code(s): L03.211 - CELLULITIS OF FACE (2) Sinusitis Assessment/Plan: -ON IV ABX -ID FOLLOW UP Code(s): J32.9 - CHRONIC SINUSITIS, UNSPECIFIED (3) Urinary tract infection Assessment/Plan: Microbiology 09/16/17 08:05 Blood Culture - Preliminary Blood - Peripheral Venous NO GROWTH OBTAINED AFTER 96 HOURS, INCUBATION TO CONTINUE FOR 1 DAYS. 09/16/17 08:10 Blood Culture - Preliminary Blood - Peripheral Venous NO GROWTH OBTAINED AFTER 96 HOURS, INCUBATION TO CONTINUE FOR 1 DAYS. 09/16/17 23:40 Urine Culture - Final Urine - Urine Clean Catch Pseudomonas Aeruginosa PER ID Code(s): N39.0 - URINARY TRACT INFECTION, SITE NOT SPECIFIED Qualifiers: Urinary tract infection type: acute cystitis Hematuria presence: without hematuria Qualified Code(s): N30.00 - Acute cystitis without hematuria
[2017-09-20] MEDS: SODIUM CHLORIDE 1,000 ML IV SCH ×2 (08:26→22:45)
--- NOTE | 2017-09-20 15:23 | PN ---
Progress Note, Physician History of Present Illness: Reports less facial pain and swelling No c/o dental pain No fever/ chills Tolerating antibiotics - Current Medication List Current Medications: Active Medications Bisacodyl (Dulcolax Suppository -) 10 mg [place] DAILY PRN PRN Reason: CONSTIPATION Last Admin: 09/19/17 09:49 Dose: 10 mg Clonazepam (Klonopin -) 0.5 mg PO BID PRN PRN Reason: ANXIETY Heparin Sodium (Porcine) (Heparin -) 5,000 unit SQ TID DU Last Admin: 09/20/17 13:48 Dose: Not Given Sodium Chloride (Normal Saline -) 1,000 mls @ 75 mls/hr IV ASDIR DU Last Admin: 09/20/17 08:26 Dose: 75 mls/hr Clindamycin Phosphate (Cleocin 600 Mg Premix Ivpb -) 600 mg in 50 mls @ 100 mls /hr IVPB Q6H-IV DU; Protocol Last Admin: 09/20/17 14:48 Dose: 100 mls/hr Ketorolac Tromethamine (Toradol Injection -) 15 mg IVPUSH Q6H PRN PRN Reason: PAIN LEVEL 4 - 6 Stop: 09/21/17 10:04 Ondansetron HCl (Zofran Injection) 4 mg IVPUSH Q6H PRN PRN Reason: NAUSEA Last Admin: 09/16/17 15:29 Dose: 4 mg - Objective Vital Signs: Vital Signs Temperature 98.5 F 09/20/17 14:11 Pulse Rate 77 09/20/17 14:11 Respiratory Rate 20 09/20/17 14:11 Blood Pressure 114/63 09/20/17 14:11 O2 Sat by Pulse Oximetry (%) 96 09/20/17 09:00 Constitutional: Yes: No Distress HENT: Yes: Other (R facial erythema and swelling nearly all resolved Small patch of erythema infraorbitally) Cardiovascular: Yes: Regular Rate and Rhythm, S1, S2 Respiratory: Yes: CTA Bilaterally Labs: CBC, BMP 09/17/17 06:30 09/17/17 06:30 Assessment/Plan R facial cellulitis improved Probable dental abscess Multiple antibiotic allergies Discontinue IV clindamycin after today's dose, observe off
[2017-09-21] MEDS: CLINDAMYCIN 600MG PREMIX IVPB 600 MG/50 ML BAG IVPB SCH (02:04)
[2017-09-21] MEDS: HEPARIN NA (PORCINE) 5,000 UNITS/ML 1ML VIAL SQ SCH (06:15)
--- NOTE | 2017-09-21 08:16 | DS ---
Physical Examination Vital Signs: Vital Signs Temperature 98.6 F 09/21/17 06:14 Pulse Rate 74 09/21/17 06:14 Respiratory Rate 20 09/21/17 06:14 Blood Pressure 132/58 09/21/17 06:14 O2 Sat by Pulse Oximetry (%) 96 09/20/17 20:44 HENT: Yes: Other (NO TENDERNESS OR ERYTHEMA) Cardiovascular: Yes: Regular Rate and Rhythm Respiratory: Yes: Regular, CTA Bilaterally Edema: No Labs: CBC, BMP 09/17/17 06:30 09/17/17 06:30 Discharge Summary Reason For Visit: FACIAL INFECTION Current Active Problems Facial cellulitis (Acute) Facial infection (Acute) Sinusitis (Acute) Hospital Course: 76 year-old female with a PMH significant for anxiety, 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 Two days ago patient felt a pinching-type pain in the right upper premolar area. She also noticed very mild swelling of the right cheek. She used ambesol and a cold pack, but the next day the swelling was worse. She experienced subjective fever and felt cold. She called her dentist who was away on vacation. She went to see Dr. Polanco who referred her the emergency department. Patient arrived yesterday evening. On this admission examination, patient has significant swelling and erythema of the right cheek extending up to the right periorbital area and partially across the bridge of the nose. She has no difficulty swallowing. She complains of mild pain and nausea. 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 09/16/17 08:10 Blood Culture - Preliminary Blood - Peripheral Venous NO GROWTH OBTAINED AFTER 96 HOURS, INCUBATION TO CONTINUE FOR 1 DAYS. 09/16/17 23:40 Urine Culture - Final Urine - Urine Clean Catch Pseudomonas Aeruginosa ASYMPTOMATIC PER ID Code(s): N39.0 - URINARY TRACT INFECTION, SITE NOT SPECIFIED Qualifiers: Urinary tract infection type: acute cystitis Hematuria presence: without hematuria Qualified Code(s): N30.00 - Acute cystitis without hematuria Condition: Improved - Instructions Diet, Activity, Other Instructions: Dental consult--pt will make apt Referrals: Loco Polanco MD [Staff Physician] - 1 Week Disposition: HOME - Home Medications Comprehensive Discharge Medication List: Ambulatory Orders NK [No Known Home Medication] 09/15/17
[2017-09-21 10:32] VITALS: BP 136/67; PULSE 81; TEMP 98.5
== END 2017-09-21 13:05 | disposition home or self-care (01) | DRG 603 ==
LOC: JER 13:21 → JERBED 22:22 → UNDOADMIN 09-16 02:14 → JERBED 09-16 02:14 → J7W 09-16 06:58
PROVIDERS: ADMIT Internal Medicine; ATTEND Family Medicine
DX: L03.211 Cellulitis of face (principal); B15.9 Hepatitis A without hepatic coma; J32.0 Chronic maxillary sinusitis; Z88.0 Allergy status to penicillin; D64.9 Anemia, unspecified; K58.9 Irritable bowel syndrome, unspecified; F41.9 Anxiety disorder, unspecified; Z87.440 Personal history of urinary (tract) infections
CPT/HCPCS: 36415; 70486-TC; 80048; 80053; 81003; 81015; 83735; 85025; 85027; 87040; 87086; 87186; 97116-GP; 97161-GP; 99283-25; J7030

== ENCOUNTER 2018-01-05 13:13 | Day surgery (SDC) | payer OTHER, MEDICARE ==
[2018-01-05] MEDS ORDERED: GENTAMICIN 80 MG PREMIXED IVPB 80 MG/100 ML BAG IVPB ONE (14:00)
[2018-01-05] MEDS ORDERED: GENTAMICIN SO4 80 MG/2 ML VIAL ONE (14:13)
[2018-01-05 14:51] VITALS: BP 107/64; PULSE 66; TEMP 98.2
== END 2018-01-05 15:49 | disposition home or self-care (01) ==
LOC: JINFUSION 13:13
PROVIDERS: ATTEND Urology
DX: N30.90 Cystitis, unspecified without hematuria (principal)
CPT/HCPCS: 96365

== ENCOUNTER 2018-01-06 12:09 | Day surgery (SDC) | payer OTHER, MEDICARE ==
[2018-01-06] MEDS ORDERED: GENTAMICIN SO4 80 MG/2 ML VIAL ONE (12:37)
[2018-01-06 12:44] VITALS: TEMP 98.2
[2018-01-06 14:53] VITALS: BP 130/70; PULSE 72
[2018-01-06] MEDS ORDERED: GENTAMICIN 80 MG PREMIXED IVPB 80 MG/100 ML BAG IVPB ONE (15:00)
== END 2018-01-06 14:30 | disposition home or self-care (01) ==
LOC: JINFUSION 12:09
PROVIDERS: ATTEND Urology
DX: N30.90 Cystitis, unspecified without hematuria (principal)
CPT/HCPCS: 96365

== ENCOUNTER 2018-01-07 13:42 | Day surgery (SDC) | payer OTHER, MEDICARE ==
[2018-01-07] MEDS ORDERED: GENTAMICIN SO4 80 MG/2 ML VIAL ONE (13:58)
[2018-01-07 14:28] VITALS: BP 135/77; PULSE 83; TEMP 98.2
[2018-01-07] MEDS ORDERED: GENTAMICIN 80 MG PREMIXED IVPB 80 MG/100 ML BAG IVPB ONE (14:45)
== END 2018-01-07 15:46 | disposition home or self-care (01) ==
LOC: JINFUSION 13:42
PROVIDERS: ATTEND Urology
DX: N30.90 Cystitis, unspecified without hematuria (principal)
CPT/HCPCS: 96365; 96366

== ENCOUNTER 2018-05-28 16:49 | Emergency (ER) | payer OTHER, MEDICARE ==
[2018-05-28 17:18] VITALS: BP 134/67; PULSE 82; TEMP 98.2; BMI 22.6
[2018-05-28] MEDS ORDERED: CLINDAMYCIN IVPB 300 MG in DEXTROSE 5%-WATER - 48 ML IVPB ONE (18:02)
--- NOTE | 2018-05-28 18:04 | PDOC ---
History of Present Illness - General History Source: Patient Exam Limitations: No Limitations - History of Present Illness Initial Comments: 05/28/18 18:10 The patient is a 77 year old female with a significant PMH of IBD who presents to the emergency department for evaluation of tooth pain. Patient states she went in to see her dentist earlier this week, but he was not there so she went to see another dental office. The dentist there told her she may have a tooth infection. Patient denies any redness, swelling or pus drainage from the tooth. Patient is known to have a GI intolerance to oral antibiotics and has required IV antibiotics in the past for tooth infections. Patient was concerned about a possible tooth infection and wanted to receive antibiotics. The patient denies chest pain, shortness of breath, headache and dizziness. Denies fever, chills, nausea, vomit, diarrhea and constipation. Denies dysuria, frequency, urgency and hematuria. Allergies: NKA Past surgical history: None reported. Social history: No reported alcohol, drug or cigarette use. <Steffi Moreland - Last Filed: 05/28/18 18:16> <Otoniel Berumen - Last Filed: 05/28/18 18:47> - General Chief Complaint: Toothache Stated Complaint: TOOTH INFECTION Time Seen by Provider: 05/28/18 17:48 Past History <Steffi Moreland - Last Filed: 05/28/18 18:16> - Past Medical History Anemia: Yes Asthma: No Cancer: No Cardiac Disorders: No CVA: No COPD: No CHF: No DVT: No Dementia: No Diabetes: No GI Disorders: Yes (IBS) Disorders: Yes (UTI (ESBL)) HTN: No Hypercholesterolemia: Yes Liver Disease: Yes (hepatitis A 1970) Seizures: No Thyroid Disease: No - Surgical History Abdominal Surgery: No Appendectomy: No Cardiac Surgery: No Cholecystectomy: No Lung Surgery: No Neurologic Surgery: No Orthopedic Surgery: Yes (cast for broken wrist(rt),brace for patellar fracture) - Immunization History Immunization Up to Date: No - Suicide/Smoking/Psychosocial Hx Smoking Status: No Smoking History: Never smoked Have you smoked in the past 12 months: No Number of Cigarettes Smoked Daily: 0 Information on smoking cessation initiated: No Hx Alcohol Use: No Drug/Substance Use Hx: No Substance Use Type: None Hx Substance Use Treatment: No <Otoniel Berumen - Last Filed: 05/28/18 18:47> - Past Medical History Allergies/Adverse Reactions: Allergies Allergy/AdvReac Type Severity Reaction Status Date / Time Sulfa (Sulfonamide Allergy Severe Verified 05/28/18 16:52 Antibiotics) [Sulfa(Sulfonamide Antibiotics)] ciprofloxacin Allergy Verified 05/28/18 16:52 Penicillins AdvReac Mild Verified 05/28/18 16:52 SEASONAL Allergy Uncoded 05/28/18 16:52 Home Medications: Ambulatory Orders clonazePAM [Klonopin -] 0.5 mg PO PRN PRN 01/05/18 Review of Systems - Review of Systems Able to Perform ROS?: Yes Comments:: 05/28/18 18:16 REVIEW OF SYSTEMS: GENERAL/CONSTITUTIONAL: No fever or chills. No weakness. No weight change. HEAD, EYES, EARS, NOSE AND THROAT: No change in vision. No ear pain or discharge. No sore throat. (+) Tooth pain. CARDIOVASCULAR: No chest pain or shortness of breath. RESPIRATORY: No cough, wheezing, or hemoptysis. GASTROINTESTINAL: No nausea and vomiting. No diarrhea. No prior abdominal surgery. GENITOURINARY: No dysuria, frequency, or change in urination. MUSCULOSKELETAL: No joint or muscle swelling or pain. No neck or back pain. SKIN AND BREASTS: No rash or easy bruising. NEUROLOGIC: No headache, vertigo, loss of consciousness, or loss of sensation. PSYCHIATRIC: No depression or anxiety. ENDOCRINE: No increased thirst. No abnormal weight change. HEMATOLOGIC/LYMPHATIC: No anemia, easy bleeding, or history of blood clots. ALLERGIC/IMMUNOLOGIC: No hives or skin allergy. No latex allergy. <Steffi Moreland - Last Filed: 05/28/18 18:16> *Physical Exam - Vital Signs Last Vital Signs Temp Pulse Resp BP Pulse Ox 98.2 F 82 20 134/67 98 05/28/18 16:51 05/28/18 16:51 05/28/18 16:51 05/28/18 16:51 05/28/18 16:51 <Steffi Moreland - Last Filed: 05/28/18 18:16> - Vital Signs Last Vital Signs Temp Pulse Resp BP Pulse Ox 98.2 F 82 20 134/67 98 05/28/18 16:51 05/28/18 16:51 05/28/18 16:51 05/28/18 16:51 05/28/18 16:51 - Physical Exam Comments: 05/28/18 18:41 GENERAL: The patient is awake, alert, and fully oriented, in no acute distress. She appears well. HEAD: Normal with no signs of trauma. EYES: Pupils equal, round and reactive to light, extraocular movements intact, sclera anicteric, conjunctiva clear. FACE: There is no facial erythema. There is no facial swelling. There is no facial tenderness. OROPHARYNX: The right upper quadrant has 2 carious molar teeth. There is no gum fluctuance or swelling. There is no erythema. There are missing teeth. Tooth #13 and 14 had large defects. There is no tap tenderness. NECK: There is no adenopathy. There is no swelling. Swallowing is normal. Breathing is normal. EXTREMITIES: Normal range of motion, no edema. NEUROLOGICAL: Normal speech, normal gait. PSYCH: Normal mood, normal affect. SKIN: Warm, Dry, normal turgor, no rashes or lesions noted. <Otoniel Berumen S - Last Filed: 05/28/18 18:47> Medical Decision Making - Medical Decision Making 05/28/18 18:43 77-year-old female with history of root canal of one molar in the right upper quadrant as well as multiple broken molars in that region. On examination, there is no gum swelling or fluctuance. There is no facial swelling or tenderness. There is no erythema. Patient denies any dental pain. Impression: Carious teeth in the right upper quadrant. One of them is status post root canal. No evidence of acute infection. I advised oral antibiotics for prevention of infection given that patient has had serious infections under these circumstances in the past. However, the patient is unable to tolerate any oral antibiotics due to GI upset. She is also ALLERGIC to penicillins, sulfa, and quinolones. There is no ALLERGY to clindamycin. Patient is very highly concerned about development of a serious infection. I agreed to give her 1 dose of IV clindamycin as a preventive treatment and she will follow up with her dentist on Wednesday. <Otoniel Berumen - Last Filed: 05/28/18 18:47> *DC/Admit/Observation/Transfer - Attestations Scribe Attestion: 05/28/18 18:17 Documentation prepared by Steffi Moreland, acting as medical billing coder for Otoniel Berumen MD. <Steffi Moreland - Last Filed: 05/28/18 18:16> - Discharge Dispostion Decision to Admit order: No <Otoniel Berumen - Last Filed: 05/28/18 18:47> Diagnosis at time of Disposition: Dental caries - Discharge Dispostion Disposition: HOME Condition at time of disposition: Stable - Patient Instructions Printed Discharge Instructions: DI for Tooth Decay Additional Instructions: Today you were evaluated for a broken tooth in the right upper mouth. There is no sign of infection. One dose of IV clindamycin was given. You are advised to watch for any signs of redness, swelling, or pain. Follow with your dentist on Wednesday. Return to the emergency department for any severe or progressive symptoms.
[2018-05-28] MEDS ORDERED: CLINDAMYCIN PHOSPHATE 300 MG/2 ML VIAL ONE (18:07)
== END 2018-05-28 19:12 | disposition home or self-care (01) ==
LOC: FER 16:49
DX: K02.9 Dental caries, unspecified (principal); E78.00 Pure hypercholesterolemia, unspecified; K58.9 Irritable bowel syndrome, unspecified; B15.9 Hepatitis A without hepatic coma
CPT/HCPCS: 99282-25

== ENCOUNTER 2018-06-01 12:08 | Emergency (ER) | payer OTHER, MEDICARE ==
[2018-06-01 12:17] VITALS: TEMP 98.2; BMI 22.6
--- NOTE | 2018-06-01 13:24 | PDOC ---
History of Present Illness <Carlie Edouard - Last Filed: 06/01/18 14:27> - General History Source: Patient Exam Limitations: No Limitations - History of Present Illness Initial Comments: 06/01/18 13:25 77 year old female with a significant PMH of IBD who presents to the emergency department for suspected R #2 tooth infection. The patient had a root canal of the same tooth 6 weeks ago and had breakage of the tooth approx 1 week ago that was filled by her dentist. She was seen in the ER 4 days ago and was given IV clindamycin in the ED and has follow up w/ PCP 3 days ago. Per patient her PCP advised that she go to the ER for antibiotics, but she waited until now. No fever,s swelling, induration or redness around the gum, no facial swelling or nubmness. Collateral provided by Mak TORRES states she was not acutely concerned for infection and had preferred to d/c with PO abx. Patient states she can only recieve IV antibiotics. ALLERGIC to penicillins, sulfa, and quinolones. There is no ALLERGY to clindamycin. 06/01/18 14:22 <Makenzie Fernandes - Last Filed: 06/01/18 14:38> - General Chief Complaint: Toothache Stated Complaint: MOUTH INFECTION Time Seen by Provider: 06/01/18 13:23 Past History <Carlie Edouard - Last Filed: 06/01/18 14:27> - Past Medical History Anemia: Yes Asthma: No Cancer: No Cardiac Disorders: No CVA: No COPD: No CHF: No DVT: No Dementia: No Diabetes: No GI Disorders: Yes (IBS) Disorders: Yes (UTI (ESBL)) HTN: No Hypercholesterolemia: Yes Liver Disease: Yes (hepatitis A 1970) Seizures: No Thyroid Disease: No - Surgical History Abdominal Surgery: No Appendectomy: No Cardiac Surgery: No Cholecystectomy: No Lung Surgery: No Neurologic Surgery: No Orthopedic Surgery: Yes (cast for broken wrist(rt),brace for patellar fracture) - Immunization History Immunization Up to Date: No - Suicide/Smoking/Psychosocial Hx Smoking Status: No Smoking History: Never smoked Have you smoked in the past 12 months: No Number of Cigarettes Smoked Daily: 0 Hx Alcohol Use: No Drug/Substance Use Hx: No Substance Use Type: None Hx Substance Use Treatment: No <Makenzie Fernandes - Last Filed: 06/01/18 14:38> - Past Medical History Allergies/Adverse Reactions: Allergies Allergy/AdvReac Type Severity Reaction Status Date / Time Sulfa (Sulfonamide Allergy Severe Verified 06/01/18 12:16 Antibiotics) [Sulfa(Sulfonamide Antibiotics)] aspirin Allergy Verified 06/01/18 12:17 ciprofloxacin Allergy Verified 06/01/18 12:16 Penicillins AdvReac Mild Verified 06/01/18 12:16 SEASONAL Allergy Uncoded 06/01/18 12:16 Home Medications: Ambulatory Orders clonazePAM [Klonopin -] 0.5 mg PO PRN PRN 01/05/18 Clindamycin [Cleocin -] 450 mg PO Q8H #63 capsule 06/01/18 Review of Systems - Review of Systems Able to Perform ROS?: Yes Comments:: 06/01/18 14:11 GENERAL/CONSTITUTIONAL: No fever or chills. No weakness. HEAD, EYES, EARS, NOSE AND THROAT: No change in vision. No ear pain or discharge. No sore throat. CARDIOVASCULAR: No chest pain or shortness of breath RESPIRATORY: No cough, wheezing, or hemoptysis. GASTROINTESTINAL: No nausea, vomiting, diarrhea or constipation. GENITOURINARY: No dysuria, frequency, or change in urination. MUSCULOSKELETAL: No joint or muscle swelling or pain. No neck or back pain. SKIN: No rash NEUROLOGIC: No headache, vertigo, loss of consciousness, or change in strength/ sensation. ENDOCRINE: No increased thirst. No abnormal weight change HEMATOLOGIC/LYMPHATIC: No anemia, easy bleeding, or history of blood clots. ALLERGIC/IMMUNOLOGIC: No hives or skin allergy. Is the patient limited Lao proficient: No <Makenzie Fernandes - Last Filed: 06/01/18 14:38> *Physical Exam - Vital Signs Last Vital Signs Temp Pulse Resp BP Pulse Ox 98.2 F 81 18 121/48 L 95 06/01/18 12:14 06/01/18 12:14 06/01/18 12:14 06/01/18 12:14 06/01/18 12:14 <Carlie Edouard - Last Filed: 06/01/18 14:27> - Vital Signs Last Vital Signs Temp Pulse Resp BP Pulse Ox 98.2 F 81 18 121/48 L 95 06/01/18 12:14 06/01/18 12:14 06/01/18 12:14 06/01/18 12:14 06/01/18 12:14 - Physical Exam Comments: 06/01/18 14:09 GENERAL: Awake, alert, and fully oriented, in no acute distress HEAD: No signs of trauma, normocephalic, atraumatic EYES:EOMI, sclera anicteric, conjunctiva clear ENT: oropharynx clear without exudates. Moist mucosa, tooth #2 filled without pain to percussion or gingival palpation NECK: Normal ROM, supple LUNGS: No distress, speaks full sentences, clear to auscultation bilaterally HEART: Regular rate and rhythm, normal S1 and S2, no murmurs, rubs or gallops, peripheral pulses normal and equal bilaterally. ABDOMEN: Soft, nontender, normoactive bowel sounds. No guarding, no rebound. No masses EXTREMITIES : Normal inspection, Normal range of motion, no edema. No clubbing or cyanosis. NEUROLOGICAL: Cranial nerves II through XII grossly intact. Normal speech, no focal sensorimotor deficits SKIN: Warm, Dry, normal turgor, no rashes or lesions noted <Makenzie Fernandes - Last Filed: 06/01/18 14:38> Medical Decision Making - Medical Decision Making 06/01/18 14:04 77 year old female with a significant PMH of IBD who presents to the emergency department for suspected R #2 tooth infection. The patient had a root canal of the same tooth 6 weeks ago and had breakage of the tooth approx 1 week ago that was filled by her dentist. She was seen in the ER 4 days ago and was given IV clindamycin in the ED and has follow up w/ PCP 3 days ago. Per patient her PCP advised that she go to the ER for antibiotics, but she waited until now. No fever,s swelling, induration or redness around the gum, no facial swelling or nubmness. ED Course: Patient with signs or symptosm of infection and without tenderness to infection ddx ibnlt: ginigivitis vs apical abscess less arnol galvan Spoke with Paloma Corado who states that she was not concernied for infection and was intending to send patient home with PO abx fro suspected abx and that the patient has taken PO abx in the past. However the patient reports that the dentist had told her she was not to take PO abx. Will d/c with course of oral abx as patient without signs of infection give strict return precautions 06/01/18 14:35 <Makenzie Fernandes - Last Filed: 06/01/18 14:38> *DC/Admit/Observation/Transfer <Carlie Edouard - Last Filed: 06/01/18 14:27> - Discharge Dispostion Decision to Admit order: No <Makenzie Fernandes - Last Filed: 06/01/18 14:38> Diagnosis at time of Disposition: Tooth pain - Discharge Dispostion Disposition: HOME Condition at time of disposition: Stable - Prescriptions Prescriptions: Clindamycin [Cleocin -] 450 mg PO Q8H #63 capsule - Referrals Referrals: Lori Queen MD [Primary Care Provider] - - Patient Instructions Printed Discharge Instructions: DI for Dental Pain Additional Instructions: You were seen in the ED for complaints of tooth tenderness In the ED you were evaluated and not found to have clinical signs of infection that would require IV antibiotics. There does not appear to be an acute need for immediate hospitalization. You are advised to follow up with your Primary Care Physician within 1 week. You were given a prescription for oral antibiotic course of Clindamycin and are advised to take medication as prescribed. Return to the ED immediately if you experience worsening tooth pain, swelling or bleeding from the gums, fevers, spreading of pain or dental breakage. - Post Discharge Activity
--- NOTE | 2018-06-01 13:52 | PDOC ---
Attending Attestation - HPI HPI: 06/01/18 14:20 The patient is a 77-year-old female, with a past medical history of anemia, HLD , IBS, ESBL, Hep A - 1970, who presents to the ED with possible R #2 tooth infection. The patient had a root canal procedure done on the same tooth 6 weeks ago. She reports that the tooth broke 1 week ago and she visited her dentist so that it could be filled. She was seen at [facility] 4 days ago and was given IV clindamycin during her stay. Patient followed up at her PCPs office on Wednesday05/30/18 and was seen by MANAGEMENT PROFESSOR Mak Dow who told her to report to the ED for antibiotics, but she came to be evaluated today. The patient denies any fevers, chills, facial swelling, or gingival induration or redness. PCP: Dr. Lori Queen <Carlie Edouard - Last Filed: 06/01/18 14:28> - Resident Resident Name: Makenzie Fernandes - ED Attending Attestation I have performed the following: I have examined & evaluated the patient, The case was reviewed & discussed with the resident, I agree w/resident's findings & plan, Exceptions are as noted - Physicial Exam PE: 06/01/18 14:28 Patient is awake and alert, well-appearing, in no distress, tolerates by mouth and ate a meal in the ED No facial induration No gingival induration or fluctuance; no dental tenderness to percussion No cervical lymphadenopathy No stridor or evidence of airway obstruction. - Medical Decision Making 06/01/18 14:26 77 y/o female presents for iv abx for a tooth infection. in the ed, pt is afebrile, w/o gingival induration or ttp, no dental tend to percussion, no enlarged regional lymphadenopathy or facial erythema. no evidence of acute infection. will d/c with dental f/u. <Perfecto Thibodeaux - Last Filed: 06/01/18 14:32> Attestations - Attestations 06/01/18 14:23 Documentation prepared by Carlie Edouard, acting as medical territory manager for Perfecto Thibodeaux MD. <Carlie Edouard - Last Filed: 06/01/18 14:28>
[2018-06-01 15:01] VITALS: BP 161/58; PULSE 91
== END 2018-06-01 14:50 | disposition home or self-care (01) ==
LOC: JER 12:08
DX: K08.89 Other specified disorders of teeth and supporting structures (principal); K58.9 Irritable bowel syndrome, unspecified; E78.00 Pure hypercholesterolemia, unspecified
CPT/HCPCS: 99282-25

== ENCOUNTER 2020-09-26 15:36 | Inpatient (IN) | payer OTHER, MEDICARE ==
[2020-09-26] MEDS ORDERED: SODIUM CHLORIDE 0.9% 1000 ML INFUS.BAG IV ONE (18:14)
[2020-09-26 18:51] LABS: BASO % 1.3 % (0-2.0); EOS % 2.4 % (0-4.5); HEMATOCRIT 35.4 % (32.4-45.2); LYMPH % 28.3 % (8-40); MCH 30.9 pg (25.7-33.7); MEAN CELL VOLUME 90.8 fl (80-96); MEAN PLT VOLUME 9.9 fl (7.5-11.1); MONO % 16.5 % (3.8-10.2); NEUT % 51.5 % (42.8-82.8); PLATELET COUNT 218 10^3/uL (134-434); RDW 13.5 % (11.6-15.6)
[2020-09-26 18:56] LABS: INR 1.12 (0.83-1.09); PROTHROMBIN TIME (PATIENT) 13.7 SEC (9.7-13.0)
[2020-09-26 18:58] LABS: ACTIVATED PTT 30.9 SECONDS (25.2-36.5)
[2020-09-26 19:11] LABS: ALBUMIN 3.4 g/dl (3.4-5.0); CALCIUM 8.6 mg/dL (8.5-10.1)
[2020-09-26 19:12] LABS: BLOOD UREA NITROGEN 9.5 mg/dL (7-18); MAGNESIUM 2.3 mg/dL (1.8-2.4)
[2020-09-26 19:14] LABS: CREATININE 0.8 mg/dL (0.55-1.3)
[2020-09-26 19:16] LABS: BILIRUBIN,TOTAL 0.3 mg/dL (0.2-1); TOT PROT 6.4 g/dl (6.4-8.2)
[2020-09-26 19:28] LABS: EPI CELLS 2 /uL (0-25.1); HYALINE CASTS 0 /uL (0-3.1); PH,URINE 5.5 (5.0-8.0); URINE APPEARANCE CLEAR; URINE BACTERIA 11 /uL (0-1359); URINE BILIRUBIN NEGATIVE (NEGATIVE); URINE COLOR YELLOW; URINE GLUCOSE (UA) NEGATIVE (NEGATIVE); URINE KETONE NEGATIVE (NEGATIVE); URINE LEUK ESTERASE NEGATIVE (NEGATIVE); URINE NITRITE NEGATIVE (NEGATIVE); URINE PROTEIN NEGATIVE (NEGATIVE); URINE RBC 129 /uL (0-23.9); URINE UROBILINOGEN 0.2 mg/dL (0.2-1.0); URINE WBC 6 /uL (0-25.8)
[2020-09-26] MEDS ORDERED: PIPERACILLIN/TAZOB 3.375 GM 3.375 GM in DEXTROSE 5%-WATER - 50 ML IVPB ONE (22:19)
[2020-09-26] MEDS ORDERED: ERTAPENEM SODIUM 1 GM in SODIUM CHLORIDE 50 ML IVPB ONE (22:23)
[2020-09-27] MEDS ORDERED: clonazePAM 0.5 MG TABLET PO PRN ×2 (01:30→01:56)
[2020-09-27] MEDS ORDERED: SODIUM CHLORIDE 1,000 ML IV SCH (01:45)
[2020-09-27] MEDS ORDERED: POLYETHYLENE GLYCOL (HEALTHYLAX) 3350 17 GM PACKET PO PRN (04:29)
[2020-09-27 09:52] LABS: BASO % 1.4 % (0-2.0); EOS % 1.6 % (0-4.5); HEMATOCRIT 35.9 % (32.4-45.2); HEMOGLOBIN 12.3 GM/dL (10.7-15.3); LYMPH % 20.5 % (8-40); MCH 30.7 pg (25.7-33.7); MCHC 34.3 g/dl (32.0-36.0); MEAN CELL VOLUME 89.6 fl (80-96); MEAN PLT VOLUME 9.9 fl (7.5-11.1); MONO % 14.8 % (3.8-10.2); NEUT % 61.7 % (42.8-82.8); PLATELET COUNT 202 10^3/uL (134-434); RBC 4.01 M/mm3 (3.60-5.2); RDW 13.6 % (11.6-15.6); WHITE BLOOD COUNT 2.9 K/mm3 (4.0-10.0)
[2020-09-27] MEDS ORDERED: ERTAPENEM SODIUM 1 GM in SODIUM CHLORIDE 50 ML IVPB SCH (10:00)
[2020-09-27] MEDS: ENOXAPARIN NA (PORCINE) 40 MG/0.4 ML DISP.SYRIN SQ SCH (10:11)
[2020-09-27 10:13] LABS: BLOOD UREA NITROGEN 7.4 mg/dL (7-18); CALCIUM 8.5 mg/dL (8.5-10.1); MAGNESIUM 2.2 mg/dL (1.8-2.4)
[2020-09-27 10:16] LABS: CREATININE 0.6 mg/dL (0.55-1.3); PHOSPHOROUS 3.3 mg/dL (2.5-4.9)
[2020-09-27 14:37] VITALS: BMI 26.3
[2020-09-27] MEDS ORDERED: DEXTROSE 5%-WATER - 50 ML IVPB ONE (17:28)
[2020-09-27] MEDS ORDERED: PIPERACILLIN/TAZOBACTAM 3.375 GM VIAL IVPB ONE (17:28)
[2020-09-27] MEDS: PIPERACILLIN/TAZOB 3.375 GM 3.375 GM in DEXTROSE 5%-WATER - 50 ML IVPB SCH (18:05)
[2020-09-27 20:57] LABS: EPI CELLS 5 /uL (0-25.1); HYALINE CASTS 1 /uL (0-3.1); PH,URINE 5.5 (5.0-8.0); URINE APPEARANCE CLEAR; URINE BACTERIA 3 /uL (0-1359); URINE BILIRUBIN NEGATIVE (NEGATIVE); URINE COLOR YELLOW; URINE GLUCOSE (UA) NEGATIVE (NEGATIVE); URINE KETONE 3+ (NEGATIVE); URINE LEUK ESTERASE NEGATIVE (NEGATIVE); URINE NITRITE NEGATIVE (NEGATIVE); URINE PROTEIN NEGATIVE (NEGATIVE); URINE RBC 791 /uL (0-23.9); URINE UROBILINOGEN 0.2 mg/dL (0.2-1.0); URINE WBC 32 /uL (0-25.8)
[2020-09-28] MEDS ORDERED: PIPERACILLIN/TAZOBACTAM 3.375 GM VIAL IVPB ONE ×3 (01:14→16:50)
[2020-09-28] MEDS ORDERED: DEXTROSE 5%-WATER - 50 ML IVPB ONE ×3 (01:14→16:51)
[2020-09-28] MEDS: PIPERACILLIN/TAZOB 3.375 GM 3.375 GM in DEXTROSE 5%-WATER - 50 ML IVPB SCH ×3 (02:14→17:24)
[2020-09-28] MEDS ORDERED: SODIUM CHLORIDE 1,000 ML IV SCH (02:30)
[2020-09-28] MEDS: ENOXAPARIN NA (PORCINE) 40 MG/0.4 ML DISP.SYRIN SQ SCH (09:44)
[2020-09-28 15:17] LABS: EOS % 2.7 % (0-4.5); HEMATOCRIT 36.1 % (32.4-45.2); HEMOGLOBIN 12.4 GM/dL (10.7-15.3); LYMPH % 22.9 % (8-40); MCHC 34.3 g/dl (32.0-36.0); MEAN CELL VOLUME 90.3 fl (80-96); MEAN PLT VOLUME 9.8 fl (7.5-11.1); MONO % 13.3 % (3.8-10.2); NEUT % 60.1 % (42.8-82.8); PLATELET COUNT 209 10^3/uL (134-434); RDW 13.7 % (11.6-15.6); WHITE BLOOD COUNT 4.2 K/mm3 (4.0-10.0)
[2020-09-28 15:42] LABS: ALBUMIN 3.2 g/dl (3.4-5.0); BLOOD UREA NITROGEN 11.8 mg/dL (7-18); MAGNESIUM 2.1 mg/dL (1.8-2.4)
[2020-09-28 15:44] LABS: CREATININE 0.8 mg/dL (0.55-1.3); PHOSPHOROUS 3.2 mg/dL (2.5-4.9)
[2020-09-28 15:47] LABS: BILIRUBIN,TOTAL 0.4 mg/dL (0.2-1); TOT PROT 6.1 g/dl (6.4-8.2)
[2020-09-28] MEDS: FAMOTIDINE 20 MG TABLET PO PRN (17:29)
[2020-09-29] MEDS ORDERED: DEXTROSE 5%-WATER - 50 ML IVPB ONE ×3 (01:10→16:28)
[2020-09-29] MEDS ORDERED: PIPERACILLIN/TAZOBACTAM 3.375 GM VIAL IVPB ONE ×3 (01:10→16:28)
[2020-09-29] MEDS: PIPERACILLIN/TAZOB 3.375 GM 3.375 GM in DEXTROSE 5%-WATER - 50 ML IVPB SCH ×3 (01:26→17:16)
[2020-09-29] MEDS: FAMOTIDINE 20 MG TABLET PO PRN ×2 (08:28→18:48)
[2020-09-29 08:38] LABS: BASO % 1.2 % (0-2.0); EOS % 7.7 % (0-4.5); HEMATOCRIT 35.6 % (32.4-45.2); HEMOGLOBIN 12.2 GM/dL (10.7-15.3); LYMPH % 30.9 % (8-40); MCH 30.5 pg (25.7-33.7); MCHC 34.3 g/dl (32.0-36.0); MEAN PLT VOLUME 9.8 fl (7.5-11.1); MONO % 16.4 % (3.8-10.2); NEUT % 43.8 % (42.8-82.8); PLATELET COUNT 193 10^3/uL (134-434); RDW 13.4 % (11.6-15.6); WHITE BLOOD COUNT 3.6 K/mm3 (4.0-10.0)
[2020-09-29 09:07] LABS: ALBUMIN 3.1 g/dl (3.4-5.0); CALCIUM 8.1 mg/dL (8.5-10.1)
[2020-09-29 09:09] LABS: BILIRUBIN,TOTAL 0.5 mg/dL (0.2-1); MAGNESIUM 2.1 mg/dL (1.8-2.4); TOT PROT 5.9 g/dl (6.4-8.2)
[2020-09-29 09:10] LABS: BLOOD UREA NITROGEN 8.8 mg/dL (7-18)
[2020-09-29 09:11] LABS: CREATININE 0.7 mg/dL (0.55-1.3)
[2020-09-29 10:58] LABS: ANISOCYTOSIS 0; HELMET CELLS 0; HOWELL-JOLLY BODIES 0; MACROCYTOSIS 0; OVALOCYTE 0; PLATELET ESTIMATE NORMAL; ROULEAU 0; SICKELED CELLS 0; TARGET CELLS 0; TEAR DROP CELLS 0; TOXIC GRANULATION 0
[2020-09-29] MEDS: ENOXAPARIN NA (PORCINE) 40 MG/0.4 ML DISP.SYRIN SQ SCH (11:37)
[2020-09-29] MEDS: SODIUM CHLORIDE 1,000 ML IV SCH (17:16)
[2020-09-30] MEDS ORDERED: DEXTROSE 5%-WATER - 50 ML IVPB ONE ×3 (01:13→17:24)
[2020-09-30] MEDS ORDERED: PIPERACILLIN/TAZOBACTAM 3.375 GM VIAL IVPB ONE ×3 (01:13→17:23)
[2020-09-30] MEDS: PIPERACILLIN/TAZOB 3.375 GM 3.375 GM in DEXTROSE 5%-WATER - 50 ML IVPB SCH ×3 (01:26→17:56)
[2020-09-30] MEDS: ENOXAPARIN NA (PORCINE) 40 MG/0.4 ML DISP.SYRIN SQ SCH (10:10)
[2020-09-30] MEDS: FAMOTIDINE 20 MG TABLET PO PRN ×2 (10:15→20:54)
[2020-09-30 10:38] LABS: BASO % 1.1 % (0-2.0); HEMOGLOBIN 12.5 GM/dL (10.7-15.3); LYMPH % 41.5 % (8-40); MCHC 34.7 g/dl (32.0-36.0); MEAN CELL VOLUME 89.3 fl (80-96); MEAN PLT VOLUME 10.3 fl (7.5-11.1); MONO % 9.2 % (3.8-10.2); NEUT % 41.2 % (42.8-82.8); PLATELET COUNT 225 10^3/uL (134-434); RBC 4.03 M/mm3 (3.60-5.2); RDW 13.4 % (11.6-15.6); WHITE BLOOD COUNT 3.7 K/mm3 (4.0-10.0)
[2020-09-30 10:59] LABS: CALCIUM 8.8 mg/dL (8.5-10.1); MAGNESIUM 2.1 mg/dL (1.8-2.4)
[2020-09-30 11:00] LABS: ALBUMIN 3.2 g/dl (3.4-5.0); BLOOD UREA NITROGEN 8.4 mg/dL (7-18)
[2020-09-30 11:01] LABS: BILIRUBIN,TOTAL 0.5 mg/dL (0.2-1)
[2020-09-30 11:02] LABS: CREATININE 0.8 mg/dL (0.55-1.3); PHOSPHOROUS 3.3 mg/dL (2.5-4.9)
[2020-09-30 11:03] LABS: TOT PROT 6.1 g/dl (6.4-8.2)
[2020-09-30] MEDS: SODIUM CHLORIDE 1,000 ML IV SCH ×2 (12:51→17:55)
[2020-09-30] MEDS: LACTOBACILLUS ACIDOPHILUS 1 TABLET PO SCH (12:51)
[2020-10-01] MEDS ORDERED: PIPERACILLIN/TAZOBACTAM 3.375 GM VIAL IVPB ONE ×3 (01:18→17:43)
[2020-10-01] MEDS ORDERED: DEXTROSE 5%-WATER - 50 ML IVPB ONE ×3 (01:18→17:43)
[2020-10-01] MEDS: PIPERACILLIN/TAZOB 3.375 GM 3.375 GM in DEXTROSE 5%-WATER - 50 ML IVPB SCH ×3 (01:48→18:31)
[2020-10-01] MEDS: SODIUM CHLORIDE 1,000 ML IV SCH (03:54)
[2020-10-01] MEDS: FAMOTIDINE 20 MG TABLET PO PRN ×2 (06:32→09:29)
[2020-10-01] MEDS ORDERED: amLODIPine BESYLATE 5 MG TABLET (FP) PO ONE (08:30)
[2020-10-01] MEDS: LACTOBACILLUS ACIDOPHILUS 1 TABLET PO SCH (09:29)
[2020-10-01] MEDS: ENOXAPARIN NA (PORCINE) 40 MG/0.4 ML DISP.SYRIN SQ SCH (09:29)
[2020-10-01 10:39] LABS: BASO % 1.8 % (0-2.0); EOS % 6.6 % (0-4.5); HEMATOCRIT 35.6 % (32.4-45.2); LYMPH % 40.2 % (8-40); MCH 30.5 pg (25.7-33.7); MCHC 33.8 g/dl (32.0-36.0); MEAN CELL VOLUME 90.2 fl (80-96); MEAN PLT VOLUME 9.8 fl (7.5-11.1); NEUT % 44.4 % (42.8-82.8); PLATELET COUNT 220 10^3/uL (134-434); RBC 3.95 M/mm3 (3.60-5.2); RDW 13.5 % (11.6-15.6); WHITE BLOOD COUNT 4.1 K/mm3 (4.0-10.0)
[2020-10-01 11:18] LABS: ALBUMIN 3.2 g/dl (3.4-5.0)
[2020-10-01 11:19] LABS: CALCIUM 8.4 mg/dL (8.5-10.1)
[2020-10-01 11:21] LABS: BLOOD UREA NITROGEN 8.8 mg/dL (7-18)
[2020-10-01 11:24] LABS: BILIRUBIN,TOTAL 0.4 mg/dL (0.2-1); CREATININE 0.8 mg/dL (0.55-1.3); TOT PROT 6.1 g/dl (6.4-8.2)
[2020-10-02] MEDS ORDERED: PIPERACILLIN/TAZOBACTAM 3.375 GM VIAL IVPB ONE ×3 (01:02→16:52)
[2020-10-02] MEDS ORDERED: DEXTROSE 5%-WATER - 50 ML IVPB ONE ×3 (01:02→16:52)
[2020-10-02] MEDS: PIPERACILLIN/TAZOB 3.375 GM 3.375 GM in DEXTROSE 5%-WATER - 50 ML IVPB SCH ×3 (01:13→17:35)
[2020-10-02] MEDS: FAMOTIDINE 20 MG TABLET PO PRN ×2 (01:46→09:22)
[2020-10-02] MEDS: LACTOBACILLUS ACIDOPHILUS 1 TABLET PO SCH (09:22)
[2020-10-02] MEDS: ENOXAPARIN NA (PORCINE) 40 MG/0.4 ML DISP.SYRIN SQ SCH (09:24)
[2020-10-02 09:30] LABS: BASO % 1.2 % (0-2.0); EOS % 5.5 % (0-4.5); HEMATOCRIT 36.6 % (32.4-45.2); HEMOGLOBIN 12.5 GM/dL (10.7-15.3); LYMPH % 35.5 % (8-40); MCH 30.8 pg (25.7-33.7); MCHC 34.2 g/dl (32.0-36.0); MEAN CELL VOLUME 90.1 fl (80-96); MEAN PLT VOLUME 10.5 fl (7.5-11.1); MONO % 5.3 % (3.8-10.2); NEUT % 52.5 % (42.8-82.8); PLATELET COUNT 252 10^3/uL (134-434); RBC 4.06 M/mm3 (3.60-5.2); RDW 13.4 % (11.6-15.6); WHITE BLOOD COUNT 5.2 K/mm3 (4.0-10.0)
[2020-10-02 10:07] LABS: ALBUMIN 3.4 g/dl (3.4-5.0); BLOOD UREA NITROGEN 9.4 mg/dL (7-18); CALCIUM 8.9 mg/dL (8.5-10.1)
[2020-10-02 10:10] LABS: CREATININE 0.9 mg/dL (0.55-1.3)
[2020-10-02 10:11] LABS: TOT PROT 6.4 g/dl (6.4-8.2)
[2020-10-02 10:16] LABS: BILIRUBIN,TOTAL 0.4 mg/dL (0.2-1)
[2020-10-03] MEDS ORDERED: PIPERACILLIN/TAZOBACTAM 3.375 GM VIAL IVPB ONE ×3 (01:29→16:33)
[2020-10-03] MEDS ORDERED: DEXTROSE 5%-WATER - 50 ML IVPB ONE ×3 (01:29→16:34)
[2020-10-03] MEDS: PIPERACILLIN/TAZOB 3.375 GM 3.375 GM in DEXTROSE 5%-WATER - 50 ML IVPB SCH ×3 (01:32→17:20)
[2020-10-03 09:03] LABS: HEMATOCRIT 35.8 % (32.4-45.2); HEMOGLOBIN 12.2 GM/dL (10.7-15.3); MCH 30.7 pg (25.7-33.7); MCHC 34.2 g/dl (32.0-36.0); MEAN CELL VOLUME 89.6 fl (80-96); PLATELET COUNT 241 10^3/uL (134-434); RBC 3.99 M/mm3 (3.60-5.2); RDW 13.4 % (11.6-15.6); WHITE BLOOD COUNT 6.3 K/mm3 (4.0-10.0)
[2020-10-03 09:23] LABS: BLOOD UREA NITROGEN 11.3 mg/dL (7-18); MAGNESIUM 2.2 mg/dL (1.8-2.4)
[2020-10-03 09:26] LABS: CREATININE 0.9 mg/dL (0.55-1.3)
[2020-10-03 09:27] LABS: PHOSPHOROUS 3.4 mg/dL (2.5-4.9)
[2020-10-03] MEDS: LACTOBACILLUS ACIDOPHILUS 1 TABLET PO SCH (09:48)
[2020-10-03] MEDS: ENOXAPARIN NA (PORCINE) 40 MG/0.4 ML DISP.SYRIN SQ SCH (09:48)
[2020-10-03] MEDS: FAMOTIDINE 20 MG TABLET PO PRN (22:01)
[2020-10-04] MEDS ORDERED: PIPERACILLIN/TAZOBACTAM 3.375 GM VIAL IVPB ONE ×2 (02:02→10:05)
[2020-10-04] MEDS ORDERED: DEXTROSE 5%-WATER - 50 ML IVPB ONE ×2 (02:02→10:06)
[2020-10-04] MEDS: PIPERACILLIN/TAZOB 3.375 GM 3.375 GM in DEXTROSE 5%-WATER - 50 ML IVPB SCH ×2 (02:13→10:11)
[2020-10-04 10:04] LABS: HEMATOCRIT 36.8 % (32.4-45.2); HEMOGLOBIN 12.5 GM/dL (10.7-15.3); MCH 30.6 pg (25.7-33.7); MEAN CELL VOLUME 90.2 fl (80-96); MEAN PLT VOLUME 10.3 fl (7.5-11.1); PLATELET COUNT 257 10^3/uL (134-434); RBC 4.09 M/mm3 (3.60-5.2); RDW 13.9 % (11.6-15.6); WHITE BLOOD COUNT 7.4 K/mm3 (4.0-10.0)
[2020-10-04] MEDS: LACTOBACILLUS ACIDOPHILUS 1 TABLET PO SCH (10:11)
[2020-10-04] MEDS: ENOXAPARIN NA (PORCINE) 40 MG/0.4 ML DISP.SYRIN SQ SCH (10:11)
[2020-10-04] MEDS: FAMOTIDINE 20 MG TABLET PO PRN (10:11)
[2020-10-04 10:43] LABS: CALCIUM 9.2 mg/dL (8.5-10.1)
[2020-10-04 10:44] LABS: BLOOD UREA NITROGEN 13.8 mg/dL (7-18)
[2020-10-04 10:47] LABS: CREATININE 0.9 mg/dL (0.55-1.3)
[2020-10-04 18:11] VITALS: BP 150/80; PULSE 80; TEMP 99
== END 2020-10-04 18:33 | disposition home or self-care (01) | DRG 392 ==
LOC: JER 15:36 → JERBED 22:24 → J5S 09-27 03:23
PROVIDERS: ADMIT Internal Medicine; ATTEND Internal Medicine
DX: K57.32 Diverticulitis of large intestine without perforation or abscess without bleeding (principal); I31.3 Pericardial effusion (noninflammatory); K59.09 Other constipation; K58.1 Irritable bowel syndrome with constipation; N28.1 Cyst of kidney, acquired; D72.829 Elevated white blood cell count, unspecified; F41.9 Anxiety disorder, unspecified; R31.9 Hematuria, unspecified; K44.9 Diaphragmatic hernia without obstruction or gangrene; D64.9 Anemia, unspecified; K57.90 Diverticulosis of intestine, part unspecified, without perforation or abscess without bleeding
CPT/HCPCS: 36415; 74176-TC; 80048; 80053; 81003; 82272; 83690; 83735; 84100; 85025; 85027; 85610; 85730; 87077; 87086; 93005; 93010; 94010; 97116-GP; 97161-GP; 99285-25; C9803; U0003; U0005

== ENCOUNTER 2021-11-11 11:45 | Observation (INO) | payer OTHER, MEDICARE ==
[2021-11-11 12:20] VITALS: BMI 26.3
[2021-11-11 14:32] LABS: BASO % 0.6 % (0-2.0); EOS % 3.2 % (0-4.5); HEMATOCRIT 38.7 % (32.4-45.2); HEMOGLOBIN 12.7 GM/dL (10.7-15.3); LYMPH % 27.7 % (8-40); MCH 30.2 pg (25.7-33.7); MCHC 32.8 g/dl (32.0-36.0); MEAN PLT VOLUME 10.7 fl (7.5-11.1); NEUT % 60.5 % (42.8-82.8); PLATELET COUNT 206 10^3/uL (134-434); RBC 4.21 M/mm3 (3.60-5.2); WHITE BLOOD COUNT 5.2 K/mm3 (4.0-10.0)
[2021-11-11 14:36] LABS: INR 1.05 (0.83-1.09); PROTHROMBIN TIME (PATIENT) 12.1 SEC (9.7-13.0)
[2021-11-11 14:38] LABS: ACTIVATED PTT 35.4 SECONDS (25.2-36.5)
[2021-11-11 14:48] LABS: ALBUMIN 3.6 g/dl (3.4-5.0)
[2021-11-11 14:49] LABS: BLOOD UREA NITROGEN 13.3 mg/dL (7-18); CALCIUM 8.9 mg/dL (8.5-10.1)
[2021-11-11 14:50] LABS: MAGNESIUM 2.4 mg/dL (1.8-2.4)
[2021-11-11 14:52] LABS: CREATININE 0.7 mg/dL (0.55-1.3)
[2021-11-11 14:54] LABS: BILIRUBIN,TOTAL 0.6 mg/dL (0.2-1); TOT PROT 6.5 g/dl (6.4-8.2)
[2021-11-11 14:58] LABS: N-TERMINAL BNP 394.7 pg/ml (5-450)
[2021-11-11] MEDS ORDERED: SODIUM CHLORIDE 0.9% 500 ML INFUS.BAG IV ONE (15:09)
[2021-11-11 17:59] LABS: EPI CELLS 1 /uL (0-25.1); HYALINE CASTS 0 /uL (0-3.1); URINE APPEARANCE CLEAR; URINE BACTERIA 27 /uL (0-1359); URINE BILIRUBIN NEGATIVE (NEGATIVE); URINE COLOR YELLOW; URINE GLUCOSE (UA) NEGATIVE (NEGATIVE); URINE KETONE TRACE (NEGATIVE); URINE LEUK ESTERASE NEGATIVE (NEGATIVE); URINE NITRITE NEGATIVE (NEGATIVE); URINE PROTEIN NEGATIVE (NEGATIVE); URINE RBC 59 /uL (0-23.9); URINE UROBILINOGEN 0.2 mg/dL (0.2-1.0); URINE WBC 2 /uL (0-25.8)
[2021-11-11] MEDS ORDERED: ACETAMINOPHEN 325 MG TABLET (FP) PO PRN (18:58)
[2021-11-11] MEDS ORDERED: HEPARIN NA (PORCINE) 5,000 UNITS/ML 1ML VIAL ONE (21:50)
[2021-11-11] MEDS ORDERED: PANTOPRAZOLE 40 MG TABLET PO ONE (21:50)
[2021-11-11] MEDS: PANTOPRAZOLE 40 MG TABLET PO SCH (22:16)
[2021-11-11] MEDS: HEPARIN NA (PORCINE) 5,000 UNITS/ML 1ML VIAL SQ SCH (22:16)
[2021-11-11] MEDS: D5-1/2NS+10 MEQ KCL - 10 MEQ/1,000 ML INFUS.BAG IV SCH (22:16)
[2021-11-11] MEDS ORDERED: LOSARTAN POTASSIUM 50 MG TABLET PO ONE (23:45)
[2021-11-12] MEDS: HEPARIN NA (PORCINE) 5,000 UNITS/ML 1ML VIAL SQ SCH ×4 (06:17→22:13)
[2021-11-12 07:34] LABS: BASO % 0.8 % (0-2.0); EOS % 4.2 % (0-4.5); HEMATOCRIT 38.2 % (32.4-45.2); HEMOGLOBIN 12.7 GM/dL (10.7-15.3); MCH 30.7 pg (25.7-33.7); MCHC 33.2 g/dl (32.0-36.0); MEAN CELL VOLUME 92.3 fl (80-96); MEAN PLT VOLUME 10.7 fl (7.5-11.1); MONO % 7.8 % (3.8-10.2); NEUT % 61.2 % (42.8-82.8); PLATELET COUNT 192 10^3/uL (134-434); RBC 4.13 M/mm3 (3.60-5.2); RDW 13.9 % (11.6-15.6); WHITE BLOOD COUNT 4.9 K/mm3 (4.0-10.0)
[2021-11-12 07:54] LABS: CALCIUM 8.9 mg/dL (8.5-10.1)
[2021-11-12 07:58] LABS: CREATININE 0.6 mg/dL (0.55-1.3)
[2021-11-12] MEDS: PANTOPRAZOLE 40 MG TABLET PO SCH (10:25)
[2021-11-12] MEDS ORDERED: LACTATED RINGERS SOLUTION 1,000 ML/1,000 ML INFUS.BAG IV SCH (14:15)
[2021-11-12] MEDS: LORazepam 2 MG/ML SDV VIAL IVPUSH ONE ×2 (15:48→16:04)
[2021-11-12] MEDS: D5-1/2NS+10 MEQ KCL - 10 MEQ/1,000 ML INFUS.BAG IV SCH (19:05)
[2021-11-12] MEDS: FAMOTIDINE 10 MG TABLET PO SCH ×2 (22:13→22:31)
[2021-11-12] MEDS: POLYETHYLENE GLYCOL (HEALTHYLAX) 3350 17 GM PACKET PO SCH (22:13)
[2021-11-12] MEDS: clonazePAM 0.5 MG TABLET PO PRN (22:13)
[2021-11-13] MEDS: HEPARIN NA (PORCINE) 5,000 UNITS/ML 1ML VIAL SQ SCH ×3 (05:32→21:32)
[2021-11-13] MEDS: FAMOTIDINE 10 MG TABLET PO SCH (09:46)
[2021-11-13] MEDS: POLYETHYLENE GLYCOL (HEALTHYLAX) 3350 17 GM PACKET PO SCH ×2 (09:46→21:32)
[2021-11-13] MEDS: clonazePAM 0.5 MG TABLET PO PRN (09:48)
[2021-11-13 09:50] LABS: BLOOD UREA NITROGEN 12.3 mg/dL (7-18)
[2021-11-13 10:22] LABS: CREATININE 0.6 mg/dL (0.55-1.3)
[2021-11-13] MEDS: D5-1/2NS+10 MEQ KCL - 10 MEQ/1,000 ML INFUS.BAG IV SCH ×2 (17:49→19:20)
[2021-11-14] MEDS: FAMOTIDINE 10 MG TABLET PO SCH ×2 (06:14→09:54)
[2021-11-14] MEDS: HEPARIN NA (PORCINE) 5,000 UNITS/ML 1ML VIAL SQ SCH ×2 (06:14→14:34)
[2021-11-14 07:34] LABS: HEMATOCRIT 37.3 % (32.4-45.2); HEMOGLOBIN 12.8 GM/dL (10.7-15.3); MCH 31.4 pg (25.7-33.7); MCHC 34.3 g/dl (32.0-36.0); MEAN CELL VOLUME 91.4 fl (80-96); MEAN PLT VOLUME 10.4 fl (7.5-11.1); PLATELET COUNT 192 10^3/uL (134-434); RBC 4.08 M/mm3 (3.60-5.2); RDW 14.1 % (11.6-15.6); WHITE BLOOD COUNT 4.8 K/mm3 (4.0-10.0)
[2021-11-14 08:01] LABS: CALCIUM 8.7 mg/dL (8.5-10.1)
[2021-11-14 08:02] LABS: ALBUMIN 3.3 g/dl (3.4-5.0); BLOOD UREA NITROGEN 15.2 mg/dL (7-18); MAGNESIUM 2.1 mg/dL (1.8-2.4)
[2021-11-14 08:05] LABS: CREATININE 0.7 mg/dL (0.55-1.3); PHOSPHOROUS 3.6 mg/dL (2.5-4.9)
[2021-11-14 08:06] LABS: BILIRUBIN,TOTAL 0.6 mg/dL (0.2-1); TOT PROT 5.8 g/dl (6.4-8.2)
[2021-11-14 08:40] VITALS: BP 145/73; PULSE 88; RESP 18; TEMP 98.7
[2021-11-14] MEDS: POLYETHYLENE GLYCOL (HEALTHYLAX) 3350 17 GM PACKET PO SCH (09:53)
[2021-11-14] MEDS ORDERED: MINERAL OIL ENEMA 133 ML ENEMA RC ONE (13:24)
[2021-11-14] MEDS ORDERED: MAGNESIUM HYDROX 2400MG/30ML ORAL SUSPENSION 30 ML CUP PO ONE (16:34)
[2021-11-14] MEDS: DOCUSATE SODIUM 100 MG CAPSULE (FP) PO ONE ×3 (17:04→17:52)
[2021-11-14] MEDS ORDERED: OLANZapine 5 MG TABLET PO SCH (22:00)
== END 2021-11-14 19:27 | disposition home or self-care (01) ==
LOC: JER 11:45 → JERBED 17:32 → J4W 23:23 → UNDODISOB 11-12 17:38 → J4W 11-13 09:50
PROVIDERS: ADMIT Internal Medicine
PROC: 3E0337Z Introduction of Electrolytic and Water Balance Substance into Peripheral Vein, Percutaneous Approach (ICD-10-PCS; principal; 2021-11-11)
PROC: 3E0337Z Introduction of Electrolytic and Water Balance Substance into Peripheral Vein, Percutaneous Approach (ICD-10-PCS; 2021-11-11)
DX: S06.0X9A Concussion with loss of consciousness of unspecified duration, initial encounter (principal); R55 Syncope and collapse; F41.9 Anxiety disorder, unspecified; Z87.440 Personal history of urinary (tract) infections; N39.0 Urinary tract infection, site not specified; K58.9 Irritable bowel syndrome, unspecified; D64.9 Anemia, unspecified; I44.7 Left bundle-branch block, unspecified; R00.2 Palpitations; B15.9 Hepatitis A without hepatic coma; K57.90 Diverticulosis of intestine, part unspecified, without perforation or abscess without bleeding; R42 Dizziness and giddiness; M62.81 Muscle weakness (generalized); Z88.2 Allergy status to sulfonamides; Z88.8 Allergy status to other drugs, medicaments and biological substances; W18.39XA Other fall on same level, initial encounter; Y93.89 Activity, other specified; Y92.89 Other specified places as the place of occurrence of the external cause
CPT/HCPCS: 36415; 70450-TC; 71045-TC-FY; 74176-TC; 76700-TC; 80048; 80053; 81003; 83690; 83735; 83880; 84100; 84484; 85025; 85027; 85610; 85730; 86140; 87086; 93005; 93010; 96361; 96365; 97116-GP; 97161-GP; 99285-25; C9803-CS; G0378; J1644; U0003; U0005

== ENCOUNTER 2022-07-25 04:10 | Emergency (ER) | payer OTHER, MEDICARE ==
[2022-07-25 04:20] VITALS: RESP 18; TEMP 98.2; BMI 25.0
[2022-07-25] MEDS ORDERED: FAMOTIDINE 20 MG/50 ML IVPB 20 MG/50 ML MG IVPB ONE (05:15)
[2022-07-25] MEDS ORDERED: LACTATED RINGERS SOLUTION 1,000 ML/1,000 ML INFUS.BAG IV SCH (05:15)
[2022-07-25] MEDS ORDERED: ACETAMINOPHEN 1000 MG/100 ML BAG IVPB ONE (05:15)
[2022-07-25] MEDS ORDERED: ACETAMINOPHEN INJECTION 100 ML IVPB ONE (05:25)
[2022-07-25] MEDS ORDERED: FAMOTIDINE 10 MG/ML VIAL IVPB ONE (05:25)
[2022-07-25 06:20] LABS: BASO % 0.7 % (0-2.0); EOS % 1.5 % (0-4.5); HEMATOCRIT 37.9 % (32.4-45.2); HEMOGLOBIN 13.1 GM/dL (10.7-15.3); LYMPH % 21.8 % (8-40); MCH 31.3 pg (25.7-33.7); MCHC 34.6 g/dl (32.0-36.0); MEAN CELL VOLUME 90.5 fl (80-96); MONO % 9.1 % (3.8-10.2); NEUT % 66.9 % (42.8-82.8); PLATELET COUNT 204 10^3/uL (134-434); RBC 4.19 M/mm3 (3.60-5.2); RDW 14.2 % (11.6-15.6); WHITE BLOOD COUNT 6.8 K/mm3 (4.0-10.0)
[2022-07-25 06:23] LABS: EPI CELLS 3 /uL (0-25.1); HYALINE CASTS 0 /uL (0-3.1); PH,URINE 6.5 (5.0-8.0); URINE APPEARANCE CLEAR; URINE BACTERIA 7 /uL (0-1359); URINE BILIRUBIN NEGATIVE (NEGATIVE); URINE COLOR YELLOW; URINE GLUCOSE (UA) NEGATIVE (NEGATIVE); URINE KETONE TRACE (NEGATIVE); URINE LEUK ESTERASE TRACE (NEGATIVE); URINE NITRITE NEGATIVE (NEGATIVE); URINE PROTEIN NEGATIVE (NEGATIVE); URINE RBC 178 /uL (0-23.9); URINE UROBILINOGEN 0.2 mg/dL (0.2-1.0); URINE WBC 8 /uL (0-25.8)
[2022-07-25 07:00] LABS: POTASSIUM 3.4 mmol/L (3.5-5.1)
[2022-07-25 07:02] LABS: CALCIUM 9.1 mg/dL (8.5-10.1)
[2022-07-25 07:03] LABS: ALBUMIN 3.6 g/dl (3.4-5.0); BLOOD UREA NITROGEN 9.7 mg/dL (7-18)
[2022-07-25 07:06] LABS: CREATININE 0.8 mg/dL (0.55-1.3)
[2022-07-25 07:07] LABS: BILIRUBIN,TOTAL 0.8 mg/dL (0.2-1); TOT PROT 6.6 g/dl (6.4-8.2)
[2022-07-25 07:30] VITALS: BP 158/76; PULSE 90
== END 2022-07-25 07:46 | disposition admitted as inpatient to this hospital (09) ==
LOC: JER 04:10
PROC: 3E033GC Introduction of Other Therapeutic Substance into Peripheral Vein, Percutaneous Approach (ICD-10-PCS; principal; 2022-07-25)
PROC: 3E033NZ Introduction of Analgesics, Hypnotics, Sedatives into Peripheral Vein, Percutaneous Approach (ICD-10-PCS; 2022-07-25)
DX: K57.32 Diverticulitis of large intestine without perforation or abscess without bleeding (principal); R10.9 Unspecified abdominal pain; R55 Syncope and collapse; R63.0 Anorexia
CPT/HCPCS: 36415; 80053; 81003; 83690; 85025; 87086; 93005; 93010; 99284-25